=== PATIENT | male | born 1955 | race Caucasian/White ===

== ENCOUNTER 2021-08-14 09:49 | Emergency (ER) | payer MEDICARE, MEDICAID, SELFPAY ==
[2021-08-14] VITALS (16 sets, daily range): BP systolic 126–166; BP diastolic 66–119; PULSE 98–137; RESP 9–24; TEMP 36.4; O2SAT 95–100
--- NOTE | 2021-08-14 10:00 | DI.RAD_ITS ---
Exam(s) XR KNEE RT 3V AP,LAT,CADE EXAM: XR KNEE RT 3V AP,LAT,CADE CLINICAL HISTORY: pain post fall. TECHNIQUE: 2D digital imaging was performed of the right knee. Three views obtained. AP, lateral an d PA tunnel views were obtained. COMPARISON: No exams were available for comparison FINDINGS: BONES: No acute fracture is present. The visualized portion of the proximal right tibial shaft appear s somewhat lucent what mildly thickened trabecular pattern. The bone also appears to be mildly enlar ged. No pathologic fracture is identified. JOINTS: The knee is normally aligned. No joint effusion is seen. Mild degenerative changes are seen i n the right knee with periarticular spurring in the medial femoral tibial joint and the patellofemora l joint. There is also moderate narrowing of the medial femoral tibial joint. SOFT TISSUE: Normal. IMPRESSION: 1. No acute fracture or dislocation. 2. Mild degenerative changes of the knee. 3. Marrow abnormalities involving the proximal right tibia. Differential considerations include Page t's disease, prior trauma or possible neoplasm. Please correlate with the patient's clinical history . No evidence of a pathologic fracture is identified. An outpatient x-ray of the right leg should be obtained. DATA REPOSITORY: RADIATION DOSE DELIVERED:
--- NOTE | 2021-08-14 10:00 | DI.CT_ITS ---
Exam(s) CT HEAD CERVICAL SPINE WO EXAM: CT HEAD CERVICAL SPINE WO CLINICAL HISTORY: pain post fall, [place]. TECHNIQUE: Imaging Protocol: Axial computed tomography images with coronal and sagittal reformatted images were created and reviewed COMPARISON: No exams were available for comparison FINDINGS: The examination is limited due to patient motion artifact. CT Head: Ventricles and Extra axial spaces: Normal in size and morphology for the patient's age. Hemorrhage: There is a 0.7 x 0.6 cm hyperdense focus in the high right parietal lobe. Findings is aceves spicious for a focus of intraparenchymal hemorrhage. It exerts no mass effect or midline shift. Cerebral parenchyma: No acute territorial infarct. There are areas of decreased attenuation in the w amado matter likely reflecting small vessel ischemic disease. Midline shift: None. Brainstem/Cerebellum: Normal. Calvarium: No acute fracture. Osteopenia. Visualized Paranasal sinuses/Mastoids: Clear. Soft Tissues: Unremarkable. CT Cervical Spine: Bones: No acute fracture or subluxation. Degenerative changes are seen in the cervical spine. Soft Tissues: Unremarkable. Lung Apices: Clear. IMPRESSION: 1. 0.7 x 0.6 cm hyperdense focus in the high right parietal lobe suspicious for acute intraparenchyma l hemorrhage. No mass effect or midline shift. 2. No acute fracture or subluxation in the cervical spine. 3. Results of this exam have been verbally communicated with provider. RADIATION DOSE DELIVERED: 1,211.01mGy.cm Total DLP DATA REPOSITORY: All CT scans at this facility are submitted to the National Radiology Data Registry (NRDR) Dose Index Registry (DIR) with the [employer] (ACR). RADIATION OPTIMIZATION: All CT scans at this facility use at least one of these dose optimization te chniques: automated exposure control; mA and/or kV adjustment per patient size (includes targeted exa ms where dose is matched to clinical indication); or iterative reconstruction.
[2021-08-14 10:30] LABS: Abs Immature Grans 0.05 10^3/uL (0.0-0.06); Absolute Basophil Count 0.02 10^3/uL (0.0-0.2); Absolute Eosinophil Count 0.13 10^3/uL (0.0-0.7); Absolute Lymphocyte Count 1.34 10^3/uL (1.2-3.4); Absolute Neutrophil Count 4.34 10^3/uL (1.2-6.7); Basophils % 0.3; Eosinophils % 1.9; Immature Grans % 0.7; Lymphocytes % 19.8; MCH 31.3 pg (27.0-33.0); MCHC 32.4 % (32.0-36.0); MCV 96.6 fL (80-95); MPV 8.8 fL (8.0-11.0); Monocytes % 13.3; Nucleated RBC 0 %; Platelet Count 158 10^3/uL (130-400); RBC 3.83 10^6/uL (4.36-5.78); RDW 12.1 % (11.8-14.1); RDW-SD 42.9 fL; WBC 6.78 10^3/uL (4.4-10.8)
[2021-08-14 10:46] LABS: ALT 18 U/L (16-63); AST 19 U/L (15-37); Albumin 3.1 g/dL (3.4-5.0); Alkaline Phosphatase 123 U/L (46-116); Anion Gap 4.4 mmol/L (3-11); BUN 11 mg/dL (7-18); Bilirubin, Total 0.3 mg/dL (0.2-1.0); CO2 31.6 mmol/L (21.0-32.0); CREATININE 0.7 mg/dL (0.70-1.30); Calcium 8.8 mg/dL (8.5-10.1); Chloride 104 mmol/L (98-107); Glucose 81 mg/dL (74-106); Potassium 4.2 mmol/L (3.5-5.1); Sodium 140 mmol/L (136-145); Total Protein 6.9 g/dL (6.4-8.2)
[2021-08-14 10:50] LABS: Bilirubin Negative (Negative); Blood Negative (Negative); Clarity Clear (Clear); Glucose Negative (Negative); Ketones Negative (Negative); Leukocyte Esterase Moderate (Negative); Nitrite Negative (Negative); Specific Gravity 1.015 (1.005-1.025); Urobilinogen 0.2 EU/dL (Up TO 0.2)
[2021-08-14 10:58] LABS: Bacteria Few HPF (Negative); C & S Indicated? Yes; Casts Negative LPF (Negative); Crystals Negative HPF (Negative); Epithelial Cells Few HPF (Negative); Mucus Negative (Negative); RBC 0-2 HPF (0-2); WBC 20-50 HPF (0-5)
[2021-08-14] MEDS: Omnipaque 350 MG/ML 100 ML BTL IJ (11:58)
--- NOTE | 2021-08-14 12:00 | DI.CT_ITS ---
Exam(s) CT CHEST/ABD/PEL W CT THORACIC LUMBAR SPINE REC EXAM: CT CHEST/ABD/PEL W and CT thoracic and lumbar spine recons CLINICAL HISTORY: fall, lumbar and thoracic pain, right flank pain TECHNIQUE: Imaging Protocol: Axial computed tomography images with coronal and sagittal reformatted images were created and reviewed CONTRAST MATERIAL: Intravenous: Omnipaque 350 Contrast volume:100 mL Oral: No COMPARISON: No exams were available for comparison FINDINGS: CHEST: Tracheobronchial tree: Patent where visualized. Pulmonary parenchyma: No consolidation or dominant measurable mass. No architectural distortion. Ther e is a 4 mm pulmonary nodule in the right upper lobe. Visualized thyroid gland: Unremarkable. Mediastinum and Giovanna: No dominant adenopathy or fluid collection. Small hiatal hernia. Pleura: No effusion or pneumothorax. Heart: Mild cardiomegaly. Moderate coronary artery calcification. No pericardial effusion. Aorta: Thoracic aorta non-dilated. Atherosclerosis. Lymph nodes: Within normal limits. Soft tissues: Unremarkable. Bones:Old bilateral rib fractures. Subacute healing fracture of the posterolateral aspect of the lef t 9th rib. No acute rib fractures. Thoracic spine recons: No acute fracture or subluxation is seen in the thoracic spine. ABDOMEN: Liver: Normal density. No measurable mass. Portal, Superior Mesenteric, and Splenic Veins: Unremarkable. Gallbladder and Biliary Tract: Cholelithiasis. No biliary ductal dilatation. There is a 3 mm stone in the common bile duct in the head of the pancreas. Pancreas: Normal density, no abnormal calcifications or inflammatory process. Spleen: Normal. Adrenals: No masses seen. Kidneys: Normal size, contour and axis. No radiodense stones or obstructive uropathy. No masses seen. Abdominal Aorta: Abdominal portion non-dilated. Atherosclerosis. Bowel: No obstruction or bowel wall thickening. No evidence of appendicitis. Peritoneal Cavity: No ascites, collection or mesenteric inflammatory response. No free air. Lymph Nodes: Within normal limits. Bones: Diffuse osteopenia. Ankylosis of the sacroiliac joints. The patient has a right total hip re placement. Soft Tissues: Bilateral fat containing inguinal hernia. PELVIS: Bladder: There is diffuse thickening of the wall of the urinary bladder. This may be secondary to ch ronic bladder outlet obstruction, infectious or inflammatory cystitis. Please correlate clinically. Reproductive Organs: Enlarged prostate gland. Lymph Nodes: Within normal limits. Bones: Osteopenia. Lumbar spine recons: The bones are osteopenic. Degenerative changes are present. There is a jorge ky deformity of the L2 vertebral body which appears old. No acute fracture or subluxation is ident ified. IMPRESSION: 1. No evidence of acute thoracic, abdominal or pelvic injury. 2. Subacute healing fracture of the posterolateral aspect of the left 9th rib. 3. 4 mm right upper lobe pulmonary nodule. In patients with high risk, (history of smoking or other risk fractures) a follow-up CT scan of the chest in 12 months is recommended. 4. Cholelithiasis and choledocholithiasis. No biliary ductal dilatation. 5. Results of this exam have been verbally communicated with provider. RADIATION DOSE DELIVERED: Total DLP DATA REPOSITORY: All CT scans at this facility are submitted to the National Radiology Data Registry (NRDR) Dose Index Registry (DIR) with the [employer] (ACR). RADIATION OPTIMIZATION: All CT scans at this facility use at least one of these dose optimization te chniques: automated exposure control; mA and/or kV adjustment per patient size (includes targeted exa ms where dose is matched to clinical indication); or iterative reconstruction.
[2021-08-14] MEDS: Normal Saline Flush 10 ML SYR IVP (12:11)
[2021-08-14] MEDS: Haloperidol 5 MG/ML VIAL 2 MG IM/IV (13:08)
[2021-08-14] MEDS: levETIRAcetam 1,000 MG in Normal Saline 100 ML 400 MG IVPB (13:19)
--- NOTE | 2021-08-14 13:43 | NUR.NOTE ---
Patient became uncooperative, attempts to slide out of bed. Bed states he needs to put pants on and get to work. 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 Attempts to take off blood pressure cuff. Soft restraints applied to bed, not to patient. Nursing Note:
--- NOTE | 2021-08-14 14:05 | ED.GENADUL_ITS ---
Discharge Plan Discharge Details Chief Complaint: Trauma Primary Care Provider: Nieves Sherman ED Provider: Susannah Lao Home Meds and New Rx's Prescriptions: No Action sennosides [senna] 8.6 mg Tablet 17.2 mg PO DAILY RF: 0 polyethylene glycol 3350 [Miralax] 17 gram Powder In Packet 17 g PO DAILY RF: 0 tamsulosin 0.4 mg Capsule 0.4 mg PO DAILY RF: 0 divalproex [Depakote ER] 500 mg Tablet Extended Release 24 Hr 500 mg PO TID RF: 0 furosemide [Lasix] 40 mg Tablet 40 mg PO QID RF: 0 pantoprazole 40 mg Recon Soln 40 mg RF: 0 potassium chloride [Klor-Con 10] 10 mEq Tablet Extended Release 20 meq PO DAILY RF: 0 pantoprazole 40 mg Tablet,Delayed Release (Dr/Ec) 40 mg PO DAILY RF: 0 haloperidol [Haldol] 10 mg Tablet 10 mg PO BID RF: 0 nicotine 21 mg/24 hr Patch 24 Hour 21 mg topical DAILY RF: 0 enoxaparin [Lovenox] 40 mg/0.4 mL Syringe 40 mg subcut DAILY RF: 0 quetiapine [Seroquel] 50 mg Tablet 50 mg PO QID RF: 0 Discharge Data Discharge Date/Time-TO BE ENTERED AT DEPARTURE: 08/14/21 14:35 Medical Decision Making <Orville Bernal MD - Last Filed: 08/21/21 19:18> Patient seen, examined, and discussed with MAGUI Lao. I agree with treatment plan as discussed/documented. <MAGUI Vázquez - Last Filed: 08/17/21 08:19> Patient is alert, oriented, slightly agitated initially upon arrival, no visible sign of trauma to patient's head but on Lovenox I will perform CT scan, will order CT head, cervical spine, chest, abdomen, pelvis Patient is hemodynamically stable Labs do not show acute abnormality, urinary tract infection likely 30 minutes?CT per radiology, Dr. Mario shows a for millimeter right parietal intraparenchymal hemorrhage Patient will need transfer for higher level of care, neurosurgery, trauma evaluation, CT chest abdomen pelvis did not show abnormality, cervical spine clear on CT scan, collar removed Blood pressure 130/80 at time of reassessment, has not received Lovenox since last evening, received 1000 mg of Keppra for seizure prophylaxis Patient did become agitated at approximately 1330, it sounds like the is his baseline intermittently with agitation and confusion, he has some dementia Low suspicion that patient is experiencing alcohol withdrawal as he has been hospitalized for the past month We will need transfer to higher level of care, I did contact [facility], [facility], [facility] and [facility], [facility] and they are unable to accept this patient I did speak with Dr. Cook at [facility] and she is able to accept this patient, he has received Haldol, 4 mg, Ativan, 1 mg, and Benadryl 25 mg secondary to acute agitation, he is at baseline on Haldol and Seroquel per nursing staff DHS arm with the time, the rehab where patient currently resides that his agitation is not new for patient and he does have baseline dementia I also reviewed his notes from [facility] recent hospitalization I have lower suspicion that patient agitation is related to intracranial pathology and despite is more multifactorial given patient dementia, current emergency room situation, and patient being made aware of transfer out of state Of note, patient was calm and cooperative, slightly confused at time of initial evaluation We did suspect patient Lovenox and whether or not any reversible intervention should be performed, however patient has not received this since last evening and as it is a short acting medication it should no longer be therapeutic Patient niece and guardian made aware regarding extended transfer secondary to capacity as she is at local hospital and patient does not have a dedicated DPOA and it sounds like this individual will be appointed to that status in the near future, as for now she would like patient to remain full code as was his wish initially \ patient is listed full CODE STATUS, it sounds like there is a POLST form pending HPI <Orville Bernal MD - Last Filed: 08/21/21 19:18> General Date/Time Provider Initiated Documentation: 08/14/21 09:57 . Related Data Home Medications Medication Instructions Recorded Confirmed divalproex [Depakote ER] 500 mg PO TID 08/14/21 08/14/21 enoxaparin [Lovenox] 40 mg SUBCUT DAILY 08/14/21 08/14/21 furosemide [Lasix] 40 mg PO QID 08/14/21 08/14/21 haloperidol [Haldol] 10 mg PO BID 08/14/21 08/14/21 nicotine 21 mg TOPICAL DAILY 08/14/21 08/14/21 pantoprazole 40 mg 08/14/21 pantoprazole 40 mg PO DAILY 08/14/21 08/14/21 polyethylene glycol 3350 [Miralax] 17 g PO DAILY 08/14/21 08/14/21 potassium chloride [Klor-Con 10] 20 meq PO DAILY 08/14/21 08/14/21 quetiapine [Seroquel] 50 mg PO QID 08/14/21 08/14/21 sennosides [senna] 17.2 mg PO DAILY 08/14/21 08/14/21 tamsulosin 0.4 mg PO DAILY 08/14/21 08/14/21 Allergies Allergy/AdvReac Type Severity Reaction Status Date / Time No Known Allergies Allergy Unverified 08/14/21 12:06 <MAGUI Vázquez - Last Filed: 08/17/21 08:19> General Mode of arrival: ambulatory . Limitations to Documentation: no limitations . Information obtained by: patient . HPI Narrative: This 65-year-old gentleman with history of alcohol consumption, hypertension, compression fractures, rib fracture, DVT presents from [facility] where he was a new patient with fall just prior to arrival. Hit his head and complaining of some right hip pain. No reported loss of consciousness. Not on ground for an extended period of time reportedly. Has not consumed alcohol in the past several months secondary to admission and transfer to skilled rehab. During the unable to give any additional information at baseline mentation on arrival reportedly. General Stated Complaint: Trauma KENDRA: 3 <MAGUI Vázquez - Last Filed: 08/17/21 08:19> All systems reviewed & are unremarkable except as noted in HPI and below PFSH <Orville Bernal MD - Last Filed: 08/21/21 19:18> Social History Smoking/Tobacco Use Status: Former Tobacco Use Quit Date: 05/14/21 Smoking risk assessment performed?: Yes Alcohol Intake: former Drug use: Never Substance use type: does not use Do you feel safe at home: Yes Do you feel safe in your relationship?: Yes <MAGUI Vázquez - Last Filed: 08/17/21 08:19> Const General: cooperative and no acute distress HENMT Other: Uvula midline, no visible evidence of trauma Eyes Pupils: PERRL Neck Other: Tenderness to palpation paraspinal, no visible evidence of trauma Resp Effort & Inspection: normal respiratory effort Auscultation: clear to auscultation bilaterally Cardio Rate: regular rate Rhythm: regular rhythm GI Other: No abdominal tenderness, no CVA tenderness, no visible evidence of trauma Back/Spine/Pelvis Back: no CVA tenderness and CVA tenderness Other: Right hip tenderness, no visible sign of trauma, specifically no visible sign of trauma to lumbar or thoracic spine Skin General skin exam: no rashes or lesions noted Neuro General: patient alert Cranial Nerves: CN's II-XI intact bilaterally Speech: speech normal Gait: normal gait Motor: muscle tone normal throughout Sensory Exam: no sensory deficits noted Other: Oriented initially to person, location, Extrem Other: Distal pulses intact <MAGUI Vázquez - Last Filed: 08/17/21 08:19> Vital Signs Vital signs: Vital Signs Temperature 36.4 C L 08/14/21 09:51 Pulse 98 H 08/14/21 09:51 Respiratory Rate 14 08/14/21 09:51 Pulse Oximetry 98 08/14/21 09:51 Temperature 36.4 C L 08/14/21 09:51 Temperature Source Skin 08/14/21 09:51 Pulse 105 H 08/14/21 13:30 Respiratory Rate 14 08/14/21 09:51 Respiratory Effort Non-Labored 08/14/21 09:54 Respiratory Depth Normal 08/14/21 09:54 Respiratory Pattern Normal 08/14/21 09:54 Blood Pressure 148/75 H 08/14/21 13:30 Blood Pressure Mean 93 08/14/21 13:30 Blood Pressure Position Supine 08/14/21 09:51 Pulse Oximetry 99 08/14/21 13:41 Oxygen Delivery Method Room Air 08/14/21 09:51 Oxygen Flow Rate 0 08/14/21 09:51 Pain Level 7 08/14/21 09:51 Lab/Test Results Lab/Test Results: 08/14/21 10:37 Urine - Reflex from Ua Urine Culture - Pending Laboratory Tests Range/Units 08/14/21 08/14/21 08/14/21 10:22 10:22 10:37 WBC (4.4-10.8) 10^3/uL 6.78 RBC (4.36-5.78) 10^6/uL 3.83 L Hgb (13.5-17.5) g/dL 12.0 L Hct (40.0-50.0) % 37.0 L MCV (80-95) fL 96.6 H MCH (27.0-33.0) pg 31.3 MCHC (32.0-36.0) % 32.4 RDW (11.8-14.1) % 12.1 Plt Count (130-400) 10^3/uL 158 MPV (8.0-11.0) fL 8.8 Immature Gran % 0.7 Neutrophils % 64.0 Lymphocytes % 19.8 Monocytes % 13.3 Eosinophils % 1.9 Basophils % 0.3 Nucleated RBC % % 0 Absolute Neutrophils (1.2-6.7) 10^3/uL 4.34 Absolute Lymphocytes (1.2-3.4) 10^3/uL 1.34 Absolute Monocytes (0.1-0.8) 10^3/uL 0.90 H Absolute Eosinophils (0.0-0.7) 10^3/uL 0.13 Absolute Basophils (0.0-0.2) 10^3/uL 0.02 Sodium (136-145) mmol/L 140 Potassium (3.5-5.1) mmol/L 4.2 Chloride (98-107) mmol/L 104 Carbon Dioxide (21.0-32.0) mmol/L 31.6 Anion Gap (3-11) mmol/L 4.4 BUN (7-18) mg/dL 11 Creatinine (0.70-1.30) mg/dL 0.7 Estimated GFR/1.73 m2 (mL/min/1.73m2) >= 60.00 Glucose (74-106) mg/dL 81 Calcium (8.5-10.1) mg/dL 8.8 Total Bilirubin (0.2-1.0) mg/dL 0.3 AST (15-37) U/L 19 ALT (16-63) U/L 18 Alkaline Phosphatase (46-116) U/L 123 H Total Protein (6.4-8.2) g/dL 6.9 Albumin (3.4-5.0) g/dL 3.1 L Urine Color (Yellow) Yellow Urine Clarity (Clear) Clear Urine pH (5-8) 7.0 Ur Specific [place] (1.005-1.025) 1.015 Urine Protein (Negative) mg/dL Negative Urine Ketones (Negative) mg/dL Negative Urine Blood (Negative) Negative Urine Nitrite (Negative) Negative Urine Bilirubin (Negative) Negative Urine Urobilinogen (Up TO 0.2) EU/dL 0.2 Ur Leukocyte Esterase (Negative) Moderate H Urine RBC (0-2) HPF 0-2 Urine WBC (0-5) HPF 20-50 H Ur Epithelial Cells (Negative) HPF Few Urine Crystals (Negative) HPF Negative Urine Bacteria (Negative) HPF Few Urine Casts (Negative) LPF Negative Urine Mucus (Negative) Negative Ur Culture Indicated? Yes Urine Glucose (Negative) mg/dL Negative Patient ABO/Rh Antibody Screen Range/Units 08/14/21 12:54 WBC (4.4-10.8) 10^3/uL RBC (4.36-5.78) 10^6/uL Hgb (13.5-17.5) g/dL Hct (40.0-50.0) % MCV (80-95) fL MCH (27.0-33.0) pg MCHC (32.0-36.0) % RDW (11.8-14.1) % Plt Count (130-400) 10^3/uL MPV (8.0-11.0) fL Immature Gran % Neutrophils % Lymphocytes % Monocytes % Eosinophils % Basophils % Nucleated RBC % % Absolute Neutrophils (1.2-6.7) 10^3/uL Absolute Lymphocytes (1.2-3.4) 10^3/uL Absolute Monocytes (0.1-0.8) 10^3/uL Absolute Eosinophils (0.0-0.7) 10^3/uL Absolute Basophils (0.0-0.2) 10^3/uL Sodium (136-145) mmol/L Potassium (3.5-5.1) mmol/L Chloride (98-107) mmol/L Carbon Dioxide (21.0-32.0) mmol/L Anion Gap (3-11) mmol/L BUN (7-18) mg/dL Creatinine (0.70-1.30) mg/dL Estimated GFR/1.73 m2 (mL/min/1.73m2) Glucose (74-106) mg/dL Calcium (8.5-10.1) mg/dL Total Bilirubin (0.2-1.0) mg/dL AST (15-37) U/L ALT (16-63) U/L Alkaline Phosphatase (46-116) U/L Total Protein (6.4-8.2) g/dL Albumin (3.4-5.0) g/dL Urine Color (Yellow) Urine Clarity (Clear) Urine pH (5-8) Ur Specific [place] (1.005-1.025) Urine Protein (Negative) mg/dL Urine Ketones (Negative) mg/dL Urine Blood (Negative) Urine Nitrite (Negative) Urine Bilirubin (Negative) Urine Urobilinogen (Up TO 0.2) EU/dL Ur Leukocyte Esterase (Negative) Urine RBC (0-2) HPF Urine WBC (0-5) HPF Ur Epithelial Cells (Negative) HPF Urine Crystals (Negative) HPF Urine Bacteria (Negative) HPF Urine Casts (Negative) LPF Urine Mucus (Negative) Ur Culture Indicated? Urine Glucose (Negative) mg/dL Patient ABO/Rh O Negative Antibody Screen NEGATIVE <MAGUI Vázquez - Last Filed: 08/17/21 08:19> Critical Care Time Critical Care Time: Yes Total Critical Care Time: 90 Attestation: Telemetry monitoring, Diagnostic Blood Work, Diagnostic Imaging needed for medical history and physical restraint as patient at risk for harm harming self and exacerbating intraparenchymal hemorrhage, transfer to trauma center, frequent neuro checks Restraint Face to Face <Orville Bernal MD - Last Filed: 08/21/21 19:18> Time of Face to Face Face to Face: Time of Face to Face: 14:05 Patient's Immediate Situation Requiring Restraints/Seclusion: Harm to Patient Patient's Medical & Behavioral Condition: Patient is quite agitated attempting to elope from the. He is quite confused. He is at risk of harming himself. Plan to provide chemical and soft physical restraint for his own protection
[2021-08-14] MEDS: diphenhydrAMINE 50 MG/ML VIAL 25 MG IVP (14:07)
[2021-08-14] MEDS: Haloperidol 5 MG/ML VIAL 4 MG IV (14:07)
[2021-08-14] MEDS: LORazepam 2 MG/ML VIAL 1 MG IVP (14:08)
[2021-08-14] MEDS: cefTRIAXone 1 GM/50 ML BAG IVPB (14:10)
--- NOTE | 2021-08-14 14:39 | NUR.NOTE ---
Patient became agitated and refusing to stay in bed, continually moving from bed. [place] soft restraints placed on patient's upper extremeties, pt give Ativan, Haldol, and Benedryl IV. Patient continued to refuse and move away from staff attempting to perform EKG's.Nursing Note:
[2021-08-14] MEDS: ACETAMINOPHEN 1,000 MG/100 ML BTL 400 MG IVPB (14:48)
[2021-08-14] MEDS: Haloperidol 5 MG/ML VIAL (14:50)
== END 2021-08-14 14:35 ==
PROVIDERS: Emergency Provider Physician Assistant; PCP Internal Medicine
DX: S06.360A Traumatic hemorrhage of cerebrum, unspecified, without loss of consciousness, initial encounter (principal); W18.39XA Other fall on same level, initial encounter; M25.551 Pain in right hip; F03.91 Unspecified dementia, unspecified severity, with behavioral disturbance; R40.2412 Glasgow coma scale score 13-15, at arrival to emergency department
CPT/HCPCS: 36415; 73562; 74177; 80053; 86850; 86900; 86901; 90471; 96365; 96367; 96372; 96375; 99291; 99292; 70450; 71260; 72125; 81003; 81015; 85025; 87086; J0131; J0696; J1200; J1630; J1953; J2060; J3490

== ENCOUNTER 2021-08-20 15:08 | Outpatient (REF) | payer SELFPAY ==
[2021-08-20 19:39] LABS: Abs Immature Grans 0.02 10^3/uL (0.0-0.06); Absolute Basophil Count 0.03 10^3/uL (0.0-0.2); Absolute Eosinophil Count 0.28 10^3/uL (0.0-0.7); Absolute Lymphocyte Count 1.43 10^3/uL (1.2-3.4); Absolute Monocyte Count 0.75 10^3/uL (0.1-0.8); Absolute Neutrophil Count 4.62 10^3/uL (1.2-6.7); Basophils % 0.4; Eosinophils % 3.9; HCT 31.4 % (40.0-50.0); HGB 10.2 g/dL (13.5-17.5); Immature Grans % 0.3; Lymphocytes % 20.1; MCH 31.6 pg (27.0-33.0); MCHC 32.5 % (32.0-36.0); MCV 97.2 fL (80-95); MPV 10.2 fL (8.0-11.0); Monocytes % 10.5; Neutrophils % 64.8; Nucleated RBC 0 %; Platelet Count 172 10^3/uL (130-400); RBC 3.23 10^6/uL (4.36-5.78); RDW 12.5 % (11.8-14.1); RDW-SD 44.9 fL; WBC 7.13 10^3/uL (4.4-10.8)
[2021-08-20 20:05] LABS: Iron 31 ug/dL (65-175); Total Iron Binding Capacity 195 ug/dL (250-450); Transferrin Sat 16 % (20-55)
[2021-08-20 20:12] LABS: Anion Gap 6.6 mmol/L (3-11); BUN 8 mg/dL (7-18); CO2 28.4 mmol/L (21.0-32.0); CREATININE 0.6 mg/dL (0.70-1.30); Calcium 8.4 mg/dL (8.5-10.1); Chloride 110 mmol/L (98-107); Ferritin 317 ng/mL (26-388); Glucose 83 mg/dL (74-106); Magnesium 2.1 mg/dL (1.8-2.4); Potassium 4.4 mmol/L (3.5-5.1); Sodium 145 mmol/L (136-145); TSH (W/Ref FT4) 4.11 uIU/mL (0.36-3.74)
[2021-08-20 20:22] LABS: Vitamin D 25 Total 34.4 ng/mL (30-100)
[2021-08-20 20:37] LABS: FREE T4 1.09 ng/dL (0.76-1.46)
[2021-08-20 20:42] LABS: Hemoglobin A1C 5.2 % (<5.7)
[2021-08-20 21:07] LABS: Folate 7.6 ng/mL (8.6-20.0); Vitamin B12 664 pg/mL (193-986)
== END 2021-08-20 15:09 | disposition home or self-care (01) ==
LOC: LBN 15:08
PROVIDERS: PCP Internal Medicine; Visit Provider Internal Medicine
DX: F10.239 Alcohol dependence with withdrawal, unspecified (principal); M62.81 Muscle weakness (generalized); I69.10 Unspecified sequelae of nontraumatic intracerebral hemorrhage; F10.97 Alcohol use, unspecified with alcohol-induced persisting dementia
CPT/HCPCS: 80048; 82306; 82607; 82728; 82746; 83036; 83540; 83550; 83735; 84439; 84443; 85025

== ENCOUNTER 2022-04-28 17:05 | Outpatient (REF) | payer SELFPAY ==
[2022-04-28 17:32] LABS: Abs Immature Grans 0.02 10^3/uL (0.0-0.06); Absolute Basophil Count 0.02 10^3/uL (0.0-0.2); Absolute Eosinophil Count 0.13 10^3/uL (0.0-0.7); Absolute Lymphocyte Count 1.68 10^3/uL (1.2-3.4); Absolute Monocyte Count 0.95 10^3/uL (0.1-0.8); Absolute Neutrophil Count 4.02 10^3/uL (1.2-6.7); Basophils % 0.3; Eosinophils % 1.9; HCT 30.6 % (40.0-50.0); HGB 10.7 g/dL (13.5-17.5); Immature Grans % 0.3; Lymphocytes % 24.6; MCH 33.8 pg (27.0-33.0); MCV 97 fL (80-95); MPV 9.5 fL (8.0-11.0); Monocytes % 13.9; Platelet Count 229 10^3/uL (130-400); RBC 3.17 10^6/uL (4.36-5.78); RDW 11.4 % (11.8-14.1); RDW-SD 40.5 fL; WBC 6.82 10^3/uL (4.4-10.8)
[2022-04-28 17:46] LABS: VALPROIC ACID 79.7 ug/mL
== END 2022-04-28 17:06 | disposition home or self-care (01) ==
LOC: LBN 17:05
PROVIDERS: PCP Internal Medicine; Visit Provider Nurse Practitioner Family
DX: F31.9 Bipolar disorder, unspecified (principal); G40.89 Other seizures; M86.171 Other acute osteomyelitis, right ankle and foot; Z51.81 Encounter for therapeutic drug level monitoring; Z79.899 Other long term (current) drug therapy
CPT/HCPCS: 80164; 85025

== ENCOUNTER 2022-04-29 17:15 | Outpatient (REF) | payer SELFPAY ==
[2022-04-29 18:28] LABS: Anion Gap 6.8 mmol/L (3-11); BUN 7 mg/dL (7-18); CO2 29.2 mmol/L (21.0-32.0); CREATININE 0.7 mg/dL (0.70-1.30); Calcium 8.6 mg/dL (8.5-10.1); Chloride 98 mmol/L (98-107); Glucose 101 mg/dL (74-106); Potassium 4.2 mmol/L (3.5-5.1); Sodium 134 mmol/L (136-145)
== END 2022-04-29 17:16 | disposition home or self-care (01) ==
LOC: LBN 17:15
PROVIDERS: PCP Internal Medicine; Visit Provider Nurse Practitioner Family
DX: M86.171 Other acute osteomyelitis, right ankle and foot (principal); R26.2 Difficulty in walking, not elsewhere classified; Z79.899 Other long term (current) drug therapy
CPT/HCPCS: 80048

== ENCOUNTER 2022-05-01 10:51 | Outpatient (REF) | payer SELFPAY ==
[2022-05-01 12:12] LABS: Bilirubin Negative (Negative); Blood Negative (Negative); Clarity Clear (Clear); Glucose Negative (Negative); Ketones Negative (Negative); Leukocyte Esterase Negative (Negative); Nitrite Negative (Negative); Specific Gravity 1.015 (1.005-1.025)
[2022-05-01 12:21] LABS: Abs Immature Grans 0.02 10^3/uL (0.0-0.06); Absolute Basophil Count 0.02 10^3/uL (0.0-0.2); Absolute Eosinophil Count 0.15 10^3/uL (0.0-0.7); Absolute Lymphocyte Count 1.44 10^3/uL (1.2-3.4); Absolute Monocyte Count 0.86 10^3/uL (0.1-0.8); Basophils % 0.3; Eosinophils % 2.2; HCT 30.5 % (40.0-50.0); HGB 10.4 g/dL (13.5-17.5); Immature Grans % 0.3; Lymphocytes % 20.9; MCH 33.2 pg (27.0-33.0); MCHC 34.1 % (32.0-36.0); MCV 97 fL (80-95); MPV 9.7 fL (8.0-11.0); Monocytes % 12.5; Neutrophils % 63.8; Platelet Count 199 10^3/uL (130-400); RBC 3.13 10^6/uL (4.36-5.78); RDW 11.4 % (11.8-14.1); RDW-SD 40.6 fL; WBC 6.89 10^3/uL (4.4-10.8)
[2022-05-01 12:36] LABS: ALT 10 U/L (16-63); AST 14 U/L (15-37); Albumin 2.7 g/dL (3.4-5.0); Alkaline Phosphatase 92 U/L (46-116); BUN 5 mg/dL (7-18); Bilirubin, Total 0.5 mg/dL (0.2-1.0); CREATININE 0.6 mg/dL (0.70-1.30); Calcium 8.2 mg/dL (8.5-10.1); Chloride 101 mmol/L (98-107); Glucose 107 mg/dL (74-106); Potassium 3.9 mmol/L (3.5-5.1); Sodium 137 mmol/L (136-145); Total Protein 5.9 g/dL (6.4-8.2)
== END 2022-05-01 10:52 | disposition home or self-care (01) ==
LOC: NCHCN 10:51
PROVIDERS: PCP Internal Medicine; Visit Provider Family Medicine
DX: M86.171 Other acute osteomyelitis, right ankle and foot (principal); Z47.81 Encounter for orthopedic aftercare following surgical amputation; I50.9 Heart failure, unspecified; R82.998 Other abnormal findings in urine
CPT/HCPCS: 80053; 81003; 85025

== ENCOUNTER 2022-05-02 04:18 | Observation (INO) | payer MEDICARE, MEDICAID, SELFPAY ==
[2022-05-02] VITALS (74 sets, daily range): BP systolic 102–168; BP diastolic 50–106; PULSE 76–124; RESP 0–27; TEMP 36.6–37.1; O2SAT 94–99
--- NOTE | 2022-05-02 | DI.RAD_ITS ---
Exam(s) XR FOOT LT COMPLETE EXAM: XR FOOT LT COMPLETE CLINICAL HISTORY: L heel pain. TECHNIQUE: 2D digital imaging was performed. Three views. COMPARISON: CR XR FOOT RT COMPLETE from 09/22/2021 FINDINGS: Exam is limited by overlying wrapping. BONES: Heel spur. No acute fracture is present. No bony destructive lesion is seen. Bones are osteop enic. JOINTS: No dislocation present. SOFT TISSUE: Diffuse swelling. IMPRESSION: Diffuse soft tissue swelling. No evidence of fracture DATA REPOSITORY: RADIATION DOSE DELIVERED:
--- NOTE | 2022-05-02 04:24 | W.ED.GENAD ---
Discharge Plan Disposition Patient Disposition: [facility] INPATIENT Condition: Poor Discharge Details Chief Complaint: AMS/LOC Clinical Impression: AMS (altered mental status), Leg edema Primary Care Provider: Nieves Sherman ED Provider: Kendall Torres [place] [facility] Rx's Prescriptions: No Action furosemide 40 mg tablet 40 mg PO DAILY haloperidol 1 mg tablet 1 mg PO BID PRN ferrous sulfate 325 mg (65 mg iron) tablet 325 mg PO BID ascorbate calcium (vitamin C) 500 mg tablet 500 mg PO BID sennosides [senna] 8.6 mg Tablet 17.2 mg PO DAILY polyethylene glycol 3350 [Miralax] 17 gram Powder In Packet 17 g PO DAILY tamsulosin 0.4 mg Capsule 0.4 mg PO DAILY divalproex [Depakote ER] 500 mg Tablet Extended Release 24 Hr 500 mg PO TID pantoprazole 40 mg Tablet,Delayed Release (Dr/Ec) 40 mg PO DAILY enoxaparin [Lovenox] 40 mg/0.4 mL Syringe 40 mg subcut DAILY quetiapine [Seroquel] 50 mg Tablet 50 mg PO QID atorvastatin 40 mg Tablet 40 mg PO QPM acetaminophen 325 mg Tablet 325 mg PO Q6H PRN PRN tramadol 50 mg Tablet 50 mg PO Q4H PRN PRN bisacodyl [Dulcolax (bisacodyl)] 10 mg Suppository 10 mg AR DAILY PRN risperidone 1 mg Tablet 1 mg PO DAILY potassium chloride 20 mEq Tablet Extended Release 20 meq PO DAILY magnesium oxide 400 mg magnesium Tablet 400 mg PO BID Medical Decision Making Patient sent from [facility] with worsening confusion, bilateral lower extremity edema, weakness, falls. Patient started on tramadol status post initial fall a little over a week ago. Patient does appear confused. He is not febrile. He is nonfocal neurologically. IV in place. Laboratory studies including urinalysis ordered. Head CT and chest x-ray to be obtained. Patient remains confused and has had multiple attempts to get off the stretcher. He is easily redirectable. His head CT is negative for any acute changes. Chest x-ray unremarkable. Laboratory studies unremarkable. His anemia is stable. His kidney function is stable. Discussed with hospitalist for admission. We will add Depakote level, ammonia, VBG. Lab Data Lab results reviewed: Yes I reviewed the patient's lab results. Lab results narrative: Unremarkable, stable anemia. ECG Data Attestation: I personally reviewed and interpreted this ECG (s) as follows: Prior ECG tracings: not available for review Interpretation: See EKG HPI General Mode of arrival: EMS. Date/Time Provider Initiated Documentation: 05/02/22 04:24. Limitations to Documentation: altered mental status. Information obtained by: patient, RN notes reviewed and old records reviewed. HPI Narrative: Patient sent from [facility] for evaluation of altered mental status, weakness, falls over the course of a week. Patient started on tramadol after the first fall. Weakness, confusion, hallucinations reported by [facility] staff. He is also developed worsening edema of both lower extremities. Here the patient does seem confused. He is very vague in his answers. Denies having headache, chest pain, shortness of breath, abdominal pain at this time. No report of fever. Related Data Home Medications Medication Instructions Recorded Confirmed divalproex 500 mg tablet,extended 500 mg PO TID 08/14/21 05/02/22 release 24 hr (Depakote ER) enoxaparin 40 mg/0.4 mL 40 mg subcut DAILY 08/14/21 08/14/21 subcutaneous syringe (Lovenox) pantoprazole 40 mg tablet,delayed 40 mg PO DAILY 08/14/21 05/02/22 release polyethylene glycol 3350 17 gram 17 g PO DAILY 08/14/21 05/02/22 oral powder packet (Miralax) quetiapine 50 mg tablet (Seroquel) 50 mg PO QID 08/14/21 08/14/21 sennosides 8.6 mg tablet (senna) 17.2 mg PO DAILY 08/14/21 05/02/22 tamsulosin 0.4 mg capsule 0.4 mg PO DAILY 08/14/21 05/02/22 ascorbate calcium (vitamin C) 500 500 mg PO BID 10/07/21 mg tablet ferrous sulfate 325 mg (65 mg 325 mg PO BID 10/07/21 iron) tablet furosemide 40 mg tablet 40 mg PO DAILY 10/07/21 05/02/22 haloperidol 1 mg tablet 1 mg PO BID PRN 10/07/21 acetaminophen 325 mg tablet 325 mg PO Q6H PRN PRN 05/02/22 05/02/22 atorvastatin 40 mg tablet 40 mg PO QPM 05/02/22 05/02/22 bisacodyl 10 mg rectal suppository 10 mg AR DAILY PRN 05/02/22 05/02/22 (Dulcolax (bisacodyl)) magnesium oxide 400 mg PO BID 05/02/22 05/02/22 potassium chloride 20 mEq 20 meq PO DAILY 05/02/22 05/02/22 tablet,extended release risperidone 1 mg tablet 1 mg PO DAILY 05/02/22 05/02/22 tramadol 50 mg tablet 50 mg PO Q4H PRN PRN 05/02/22 05/02/22 Allergies Allergy/AdvReac Type Severity Reaction Status Date / Time No Known Allergies Allergy Unverified 05/02/22 04:26 General KENDRA: 3 Review of Systems Unobtainable due to mental status PFSH All Active Problems (Updated 05/02/22 @ 07:40 by Kendall Torres MD) AMS (altered mental status) (Acute) Leg edema (Acute) Medical History Bipolar disorder GERD (gastroesophageal reflux disease) Hypercholesterolemia Surgical History Amputated toe of right foot Social History Smoking/Tobacco Use Status: Former Tobacco Use Quit Date: 05/14/21 Smoking risk assessment performed?: Yes Alcohol Intake: former Drug use: Never Substance use type: does not use Do you feel safe at home: Yes Do you feel safe in your relationship?: Yes Exam Narrative Exam Narrative: Const: Obese male in NAD. HEENT: NC/AT. Normal facial exam. Eyes: Normal conjunctiva and sclera. Neck: Supple. Trachea midline. Lungs: Normal respiratory effort. Lungs are clear lateral and anterior. Cor: RRR without murmur/gallop. Good radial pulses. GI: Soft. NT. Slightly distended. Neuro: A+O x 1. Normal speech. Cranial nerves II - XII grossly intact. No gross motor or sensory deficit. Ext: No C/C. Marked bilateral lower extremity edema with both feet and legs wrapped. Amputated toe site clean dry and intact Skin: Warm and dry without rash.
--- NOTE | 2022-05-02 04:30 | DI.RAD_ITS ---
Exam(s) XR CHEST 2V PA LATERAL EXAM: XR CHEST 2V PA LATERAL CLINICAL HISTORY: cough TECHNIQUE: 2D digital imaging was performed. COMPARISON: No exams were available for comparison FINDINGS: HEART: Mildly enlarged. Aorta tortuous.. PULMONARY VASCULATURE: Normal. LUNGS: Suboptimally inflated but clear. PLEURAL SPACE: No pleural effusion or pneumothorax. BONE:No compression fractures. IMPRESSION: No acute abnormality. DATA REPOSITORY: RADIATION DOSE DELIVERED:
--- NOTE | 2022-05-02 04:30 | DI.CT_ITS ---
Exam(s) CT HEAD WO EXAM: CT HEAD WO CLINICAL HISTORY: AMS. TECHNIQUE: Imaging Protocol: Axial computed tomography images with coronal and sagittal reformatted images were created and reviewed COMPARISON: CT CT HEAD CERVICAL SPINE WO from 08/14/2021 FINDINGS: Exam is mildly limited by patient motion. Ventricles and Extra axial spaces: Normal in size and morphology for the patient's age. Hemorrhage: No acute hemorrhage. Cerebral parenchyma: Atrophy. White matter changes consistent with small vessel disease. Stable 7 m m hyperintense focus in the superior right frontal region. Midline shift: None. Brainstem/Cerebellum: Normal. Calvarium: No fracture. Visualized Paranasal sinuses/Mastoids: Mucous retention cysts both maxillary sinuses. Mild mucosal t hickening ethmoid and sphenoid sinuses. IMPRESSION: Atrophy and white matter changes of small vessel disease. Stable hyper intense focus superior right frontal lobe. No acute abnormality. RADIATION DOSE DELIVERED: 1,113.84mGy.cm Total DLP 1,113.84mGy.cm Total DLP DATA REPOSITORY: All CT scans at this facility are submitted to the National Radiology Data Registry (NRDR) Dose Index Registry (DIR) with the [employer] (A[employer]). RADIATION OPTIMIZATION: All CT scans at this facility use at least one of these dose optimization te chniques: automated exposure control; mA and/or kV adjustment per patient size (includes targeted exa ms where dose is matched to clinical indication); or iterative reconstruction.
--- NOTE | 2022-05-02 04:30 | RT.EKG_ITS ---
APPROVED REPORT Exam: Resting ECG Reason for Exam: weakness Patient Location: E HR:99 bpm ECG Measurements Heart Rate 99 AXIS DE [id number] P [id number] QRSd 84 QRS -3 QT 340 T 8 QTc 437 Conclusion Atrial flutter with predominant 3:1 AV block...A-rate 312, multiple Ps Low voltage, precordial leads...precordial leads <1.0mV NSR @ 99 not flutter. Normal R[place]ana Nonspecific ST-T changes No STEMI
[2022-05-02 05:09] LABS: Abs Immature Grans 0.02 10^3/uL (0.0-0.06); Absolute Basophil Count 0.01 10^3/uL (0.0-0.2); Absolute Eosinophil Count 0.14 10^3/uL (0.0-0.7); Absolute Lymphocyte Count 1.47 10^3/uL (1.2-3.4); Absolute Monocyte Count 0.85 10^3/uL (0.1-0.8); Absolute Neutrophil Count 4.72 10^3/uL (1.2-6.7); Basophils % 0.1; Eosinophils % 1.9; HCT 30.6 % (40.0-50.0); HGB 10.4 g/dL (13.5-17.5); Immature Grans % 0.3; Lymphocytes % 20.4; MCH 32.9 pg (27.0-33.0); MCV 97 fL (80-95); MPV 9.1 fL (8.0-11.0); Monocytes % 11.8; Neutrophils % 65.5; Platelet Count 192 10^3/uL (130-400); RBC 3.16 10^6/uL (4.36-5.78); RDW 11.5 % (11.8-14.1); RDW-SD 40.7 fL; WBC 7.21 10^3/uL (4.4-10.8)
[2022-05-02 05:10] LABS: Bilirubin Negative (Negative); Blood Negative (Negative); Clarity Clear (Clear); Glucose Negative (Negative); Ketones Negative (Negative); Leukocyte Esterase Negative (Negative); Nitrite Negative (Negative); Specific Gravity 1.015 (1.005-1.025); pH 8.5 (5-8)
[2022-05-02 05:24] LABS: ALT 9 U/L (16-63); AST 12 U/L (15-37); Albumin 2.6 g/dL (3.4-5.0); Alkaline Phosphatase 86 U/L (46-116); Anion Gap 7.7 mmol/L (3-11); BUN 4 mg/dL (7-18); Bilirubin, Total 0.5 mg/dL (0.2-1.0); CO2 27.3 mmol/L (21.0-32.0); CREATININE 0.6 mg/dL (0.70-1.30); Calcium 8.5 mg/dL (8.5-10.1); Chloride 103 mmol/L (98-107); Glucose 95 mg/dL (74-106); Magnesium 1.9 mg/dL (1.8-2.4); Potassium 3.9 mmol/L (3.5-5.1); Sodium 138 mmol/L (136-145); Total Protein 6.2 g/dL (6.4-8.2); Troponin I < 50 ng/L (<or=60)
--- NOTE | 2022-05-02 05:49 | DI.VRAD_ITS ---
Addendum created by Lisbeth Pitts MD on 05/02/2022 5:51:11 AM EDT: THIS REPORT CONTAINS FINDINGS THAT MAY BE CRITICAL TO PATIENT CARE. The findings were verbally communicated via telephone conference at 5:51 AM EDT on 05/02/2022 with SEGUNDO COOK. The findings were acknowledged and understood. Initial report created on 05/02/2022 5:49:05 AM EDT: PROCEDURE INFORMATION: Exam: CT Head Without Contrast Exam date and time: 05/02/2022 5:16 AM Age: 66 years old Clinical indication: Stroke-like symptoms TECHNIQUE: Imaging protocol: Computed tomography of the head without contrast. Other technique: STROKE PROTOCOL was implemented. COMPARISON: CT HEAD CERVICAL SPINE WO 08/14/2021 12:08 PM FINDINGS: Brain: Diffuse sulcal prominence is compatible with age-related involutional changes. There is no intracranial hemorrhage, mass effect, midline shift, or extra-axial collection. Suarez-white matter differentiation is preserved. There is no evidence of acute territorial infarct. 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 Mild patchy hypoattenuation in the supratentorial white matter is most compatible with underlying mild chronic microangiopathy in a patient of this age. Cerebral ventricles: Diffuse prominence of the ventricular system compatible with age-related involutional changes. The size and configuration of the ventricular system is stable. No hydrocephalus. Paranasal sinuses: Mild polypoid mucosal thickening in both maxillary sinuses. Mild mucosal thickening in the bilateral ethmoid air cells. Tiny air-fluid level in the right maxillary sinus. Mastoid air cells: The mastoid air cells are clear bilaterally. Bones/joints: The calvarium is osteopenic. No acute abnormality. Soft tissues: Extracranial soft tissues are unremarkable. IMPRESSION: 1. No acute intracranial abnormality. No intracranial hemorrhage or acute territorial infarct. 2. Stable chronic and incidental findings are discussed in the body of the report. ASSESSMENT: ASPECTS ([place] Stroke Program Early CT Score) is 10. Dictated and Authenticated by: Lisbeth Pitts MD. Ordering:SAI Argueta MD
--- NOTE | 2022-05-02 05:53 | DI.VRAD_ITS ---
PROCEDURE INFORMATION: Exam: XR Chest Exam date and time: 05/02/2022 5:30 AM Age: 66 years old Clinical indication: Other: Cough TECHNIQUE: Imaging protocol: XR of the chest. Views: 2 views. COMPARISON: CT CHEST/ABD/PEL W 08/14/2021 12:14 PM FINDINGS: Lungs: There are low lung volumes. The lungs are clear, without consolidation or pulmonary edema. Pulmonary vasculature is normal in caliber. Pleural spaces: Unremarkable. No pleural effusion or pneumothorax. Heart/Mediastinum: Apparent enlargement of the cardiac silhouette is felt to most likely be artifactual, accentuated by decreased inspiratory effort and the mediastinal lipomatosis seen on the comparison CT. The thoracic aorta is tortuous, with mural calcification. The stacie are not enlarged. Bones/joints: Degenerative changes. No acute osseous abnormality. IMPRESSION: No acute cardiopulmonary abnormality. Dictated and Authenticated by: Lisbeth Pitts MD. Ordering:SAI Argueta MD
[2022-05-02 07:50] LABS: BE (Venous) 3 mmol/L (-2-3); HCO3 (Venous) 27 mmol/L (23-28); O2 Sat (Venous) 86 %; TCO2 (Venous) 25 mmol/L (24-29); pCO2 (Venous) 40 mmHg (41-51); pH (Venous) 7.45 (7.31-7.41); pO2 (Venous) 51 mmHg
[2022-05-02 08:02] LABS: Ammonia 36 umol/L (11-32)
[2022-05-02 08:12] LABS: VALPROIC ACID 53.8 ug/mL
[2022-05-02 09:12] LABS: Lab Add On Test DONE
[2022-05-02 09:17] LABS: Source Nasal/Nares
[2022-05-02 10:01] LABS: Procalcitonin < 0.1 ng/mL
[2022-05-02 10:19] LABS: COVID-19 PCR Negative (Negative)
[2022-05-02] MEDS: Acetaminophen 325 MG TAB PO (17:19)
--- NOTE | 2022-05-02 18:48 | PGE_ITS ---
Date of Service Date of service: 05/02/22 Time of Service: 17:50 Subjective Subjective Interval history since last seen: Mr Bhakta is a 66 year old male with PMHx of bipolar d/o, EtOH abuse in the past, GERD, obesity with BMI of 30, who resides at [facility] who was brought to [facility] ED Objective Last Vital Signs Temp 37.1 C 05/02/22 15:17 Pulse 94 H 05/02/22 15:30 Resp 14 05/02/22 15:31 BP 131/91 H 05/02/22 15:30 Pulse Ox 94 05/02/22 15:17 Laboratory Results - last 24 hr 05/02/22 05/02/22 05/02/22 04:45 04:45 04:53 WBC 7.21 RBC 3.16 L Hgb 10.4 L Hct 30.6 L MCV 97 H MCH 32.9 MCHC 34.0 RDW 11.5 L Plt Count 192 MPV 9.1 Immature Gran % 0.3 Neutrophils % 65.5 Lymphocytes % 20.4 Monocytes % 11.8 Eosinophils % 1.9 Basophils % 0.1 Nucleated RBC % 0.0 Absolute Neutrophils 4.72 Absolute Lymphocytes 1.47 Absolute Monocytes 0.85 H Absolute Eosinophils 0.14 Absolute Basophils 0.01 VBG pH VBG pCO2 VBG pO2 VBG HCO3 VBG Total CO2 VBG O2 Saturation VBG Base Excess Sodium 138 Potassium 3.9 Chloride 103 Carbon Dioxide 27.3 Anion Gap 7.7 BUN 4 L Creatinine 0.6 L Estimated GFR/1.73 m2 >= 60.00 Glucose 95 Calcium 8.5 Magnesium 1.9 Total Bilirubin 0.5 AST 12 L ALT 9 L Alkaline Phosphatase 86 Ammonia Troponin I < 50 Total Protein 6.2 L Albumin 2.6 L Procalcitonin Urine Color Yellow Urine Clarity Clear Urine pH 8.5 H Ur Specific [place] 1.015 Urine Protein Negative Urine Ketones Negative Urine Blood Negative Urine Nitrite Negative Urine Bilirubin Negative Urine Urobilinogen 1.0 H Ur Leukocyte Esterase Negative Urine Glucose Negative Valproic Acid COVID-19 Source SARS-CoV-2 (PCR) Add-On Test Request 05/02/22 05/02/22 05/02/22 07:45 07:45 07:45 WBC RBC Hgb Hct MCV MCH MCHC RDW Plt Count MPV Immature Gran % Neutrophils % Lymphocytes % Monocytes % Eosinophils % Basophils % Nucleated RBC % Absolute Neutrophils Absolute Lymphocytes Absolute Monocytes Absolute Eosinophils Absolute Basophils VBG pH 7.45 H VBG pCO2 40 L VBG pO2 51 VBG HCO3 27 VBG Total CO2 25 VBG O2 Saturation 86 VBG Base Excess 3 Sodium Potassium Chloride Carbon Dioxide Anion Gap BUN Creatinine Estimated GFR/1.73 m2 Glucose Calcium Magnesium Total Bilirubin AST ALT Alkaline Phosphatase Ammonia 36 H Troponin I Total Protein Albumin Procalcitonin Urine Color Urine Clarity Urine pH Ur Specific [place] Urine Protein Urine Ketones Urine Blood Urine Nitrite Urine Bilirubin Urine Urobilinogen Ur Leukocyte Esterase Urine Glucose Valproic Acid 53.8 COVID-19 Source SARS-CoV-2 (PCR) Add-On Test Request 05/02/22 05/02/22 05/02/22 07:45 07:45 09:10 WBC RBC Hgb Hct MCV MCH MCHC RDW Plt Count MPV Immature Gran % Neutrophils % Lymphocytes % Monocytes % Eosinophils % Basophils % Nucleated RBC % Absolute Neutrophils Absolute Lymphocytes Absolute Monocytes Absolute Eosinophils Absolute Basophils VBG pH VBG pCO2 VBG pO2 VBG HCO3 VBG Total CO2 VBG O2 Saturation VBG Base Excess Sodium Potassium Chloride Carbon Dioxide Anion Gap BUN Creatinine Estimated GFR/1.73 m2 Glucose Calcium Magnesium Total Bilirubin AST ALT Alkaline Phosphatase Ammonia Troponin I Total Protein Albumin Procalcitonin < 0.1 Urine Color Urine Clarity Urine pH Ur Specific [place] Urine Protein Urine Ketones Urine Blood Urine Nitrite Urine Bilirubin Urine Urobilinogen Ur Leukocyte Esterase Urine Glucose Valproic Acid COVID-19 Source Nasal/Nares SARS-CoV-2 (PCR) Negative Add-On Test Request DONE
[2022-05-02] MEDS: Furosemide 40 MG/4 ML VIAL IVP (18:49)
--- NOTE | 2022-05-02 18:54 | HPE_ITS ---
Date of service: 05/02/22 Time of Service: 17:50 Assessment and Plan Assessment and plan (1) Toxic metabolic encephalopathy: Status: Acute Assessment and plan: In setting of hyperammonemia, h/o EtOH abuse. Baseline mental status is A&Ox2. On my exam the patient was cooperative, but had asterexis. Schedule lactulose. Trend ammonia and monitor mental status. (2) Hyperammonemia: Status: Acute Assessment and plan: The patient has a h/o EtOH abuse - I wonder if he has cirrhosis. Additionally, he is on depakote, and hyperammonemia could be its side effects. Trial lactulose. Continue depakote for now, but consider changing it to a different agent. (3) Acute CHF: Status: Acute Assessment and plan: We are not aware of this patient's cardiac history. Obtain echo. Monitor on tele. Repeat troponin. Check TSH. (4) Leg edema: Status: Acute Assessment and plan: As above. Additionally, obtain venous dopplers BLEs. (5) Left foot pain: Status: Acute Assessment and plan: Check XR. ?trauma during one of the falls. (6) Ambulatory dysfunction: Status: Acute Assessment and plan: C/s PT (7) DVT prophylaxis: Status: Acute Assessment and plan: SC heparin (8) Discharge planning issues: Status: Acute Assessment and plan: DNR/DNI per [facility] form. Has a temporary guardianship. History of Present Illness History of Present Illness Chief Complaint: Altered mental status Narrative: Mr Bhakta is a 66 year old male with PMHx of bipolar d/o, EtOH abuse in the past, GERD, obesity with BMI of 30, who resides at [facility] who was brought to [facility] ED early this morning for altered mental status. Per Dr Torres, this has been going on for at least a week and started with a fall on 04/26/22, when he was started on tramadol for pain. Since then the patient has been unsteady on his feet and more and more confused. On 04/29-04/30, he was noted to have more leg swelling and was started on lasix. Apparently, he was hallucinating, weaker, and unable to stand. In the ED, he was restless and trying to get out of bed, which was not safe because he was unsteady on his feet. His ER workup revealed a negative CT head and CXR, a negative UA, and no evidence of a bacterial process. He had tested negative for COVID-19. He was found to be mildly hyperammonemic. Hospitalist admission was requested. On interaction with me, the patient is A&Ox2, cooperative, answers all questions, reports pain in L ankle/heel and nowhere else. He told me that he normally gets cherri boots and that the ones he is wearing were put on on (4 days ago). He is not able to tell me details of his medical history. He denies pain/discomfort anywhere else. He reports a little nausea. Review of Systems Narrative: The patient reports L heel pain. He specifically denies dizziness, chest pain, shortness of breath, cough, endorses mild nausea. All systems reviewed & are unremarkable except as noted in HPI and below PFSH All Active Problems (Updated 05/02/22 @ 19:22 by Anastasiya Franz MD) Discharge planning issues (Acute) DVT prophylaxis (Acute) Ambulatory dysfunction (Acute) Left foot pain (Acute) Acute CHF (Acute) Hyperammonemia (Acute) Toxic metabolic encephalopathy (Acute) AMS (altered mental status) (Acute) Leg edema (Acute) Medical History (Updated 05/02/22 @ 19:22 by Anastasiya Franz MD) Alcoholism in remission Bipolar disorder BPH (benign prostatic hyperplasia) Chronic osteomyelitis R third toe s/p amputation COVID-19 ?when GERD (gastroesophageal reflux disease) Hypercholesterolemia Incoordination Muscle weakness Seizure disorder per [facility] chart Surgical History Amputated toe of right foot Social History Smoking/Tobacco Use Status: Former Tobacco Use Quit Date: 05/14/21 Smoking risk assessment performed?: Yes Alcohol Intake: former Drug use: Never Substance use type: does not use Do you feel safe at home: Yes Do you feel safe in your relationship?: Yes Meds Allergies and Home Medications Allergies Allergy/AdvReac Type Severity Reaction Status Date / Time No Known Allergies Allergy Unverified 05/02/22 04:26 Home Medications Medication Instructions Recorded Confirmed Type divalproex 500 mg tablet,extended 500 mg PO TID 08/14/21 05/02/22 History release 24 hr (Depakote ER) enoxaparin 40 mg/0.4 mL 40 mg subcut DAILY 08/14/21 08/14/21 History subcutaneous syringe (Lovenox) pantoprazole 40 mg tablet,delayed 40 mg PO DAILY 08/14/21 05/02/22 History release polyethylene glycol 3350 17 gram 17 g PO DAILY 08/14/21 05/02/22 History oral powder packet (Miralax) quetiapine 50 mg tablet (Seroquel) 50 mg PO QID 08/14/21 08/14/21 History sennosides 8.6 mg tablet (senna) 17.2 mg PO DAILY 08/14/21 05/02/22 History tamsulosin 0.4 mg capsule 0.4 mg PO DAILY 08/14/21 05/02/22 History ascorbate calcium (vitamin C) 500 500 mg PO BID 10/07/21 History mg tablet ferrous sulfate 325 mg (65 mg 325 mg PO BID 10/07/21 History iron) tablet furosemide 40 mg tablet 40 mg PO BID 10/07/21 05/02/22 History haloperidol 1 mg tablet 1 mg PO BID PRN 10/07/21 History acetaminophen 325 mg tablet 325 mg PO Q6H PRN PRN 05/02/22 05/02/22 History atorvastatin 40 mg tablet 40 mg PO QPM 05/02/22 05/02/22 History bisacodyl 10 mg rectal suppository 10 mg DC DAILY PRN 05/02/22 05/02/22 History (Dulcolax (bisacodyl)) magnesium oxide 400 mg PO BID 05/02/22 05/02/22 History potassium chloride 20 mEq 20 meq PO DAILY 05/02/22 05/02/22 History tablet,extended release risperidone 1 mg tablet 1 mg PO DAILY 05/02/22 05/02/22 History sodium chloride 1 gram tablet 1 g PO HS 05/02/22 05/02/22 History tramadol 50 mg tablet 50 mg PO Q4H PRN PRN 05/02/22 05/02/22 History Allergy/Medication Comments:: the MAR that came with the patient from [facility] is incomplete - therefore, I cannot verify the doses of some of these medications/if the patient is still on them. Exam Narrative Exam Narrative: General: Obese male who looks much older than his stated age, A&Ox2, sitting calmly in a chair, on RA, no dyspnea/tachypnea/cyanosis Neurological: A&Ox2, +mild asterexis, no focal deficits Psychiatric: cooperative, calm, somewhat flat affect Skin: BLEs are dressed in unna boots; otherwise, no obvious bruises/rashes HEENT: Atraumatic, normocephalic (?healed incisions seen at the top of the head), EOMI, MMM, clear oropharynx, no submandibular or cervical lymphadenopathy, no goiter or JVD Cardiovascular: RRR, no m/r/g Lungs: Rales B lung martin Gastrointestinal: soft, obese, nontender Genitourinary: deferred Extremities: BLEs in unna boots. Results Imaging Additional studies: CXR: No acute abnormality.? CT head w/ contrast: Atrophy and white matter changes of small vessel disease.? Stable hyper intense focus superior right frontal lobe.? No acute abnormality. EKG; ST, HR 99, no acute ischemia Labs Result diagrams: 05/02/22 04:45 05/02/22 04:45 Labs: Laboratory Results - last 24 hr 05/02/22 05/02/22 05/02/22 04:45 04:45 04:53 WBC 7.21 RBC 3.16 L Hgb 10.4 L Hct 30.6 L MCV 97 H MCH 32.9 MCHC 34.0 RDW 11.5 L Plt Count 192 MPV 9.1 Immature Gran % 0.3 Neutrophils % 65.5 Lymphocytes % 20.4 Monocytes % 11.8 Eosinophils % 1.9 Basophils % 0.1 Nucleated RBC % 0.0 Absolute Neutrophils 4.72 Absolute Lymphocytes 1.47 Absolute Monocytes 0.85 H Absolute Eosinophils 0.14 Absolute Basophils 0.01 VBG pH VBG pCO2 VBG pO2 VBG HCO3 VBG Total CO2 VBG O2 Saturation VBG Base Excess Sodium 138 Potassium 3.9 Chloride 103 Carbon Dioxide 27.3 Anion Gap 7.7 BUN 4 L Creatinine 0.6 L Estimated GFR/1.73 m2 >= 60.00 Glucose 95 Calcium 8.5 Magnesium 1.9 Total Bilirubin 0.5 AST 12 L ALT 9 L Alkaline Phosphatase 86 Ammonia Troponin I < 50 Total Protein 6.2 L Albumin 2.6 L Procalcitonin Urine Color Yellow Urine Clarity Clear Urine pH 8.5 H Ur Specific [place] 1.015 Urine Protein Negative Urine Ketones Negative Urine Blood Negative Urine Nitrite Negative Urine Bilirubin Negative Urine Urobilinogen 1.0 H Ur Leukocyte Esterase Negative Urine Glucose Negative Valproic Acid COVID-19 Source SARS-CoV-2 (PCR) Add-On Test Request 05/02/22 05/02/22 05/02/22 07:45 07:45 07:45 WBC RBC Hgb Hct MCV MCH MCHC RDW Plt Count MPV Immature Gran % Neutrophils % Lymphocytes % Monocytes % Eosinophils % Basophils % Nucleated RBC % Absolute Neutrophils Absolute Lymphocytes Absolute Monocytes Absolute Eosinophils Absolute Basophils VBG pH 7.45 H VBG pCO2 40 L VBG pO2 51 VBG HCO3 27 VBG Total CO2 25 VBG O2 Saturation 86 VBG Base Excess 3 Sodium Potassium Chloride Carbon Dioxide Anion Gap BUN Creatinine Estimated GFR/1.73 m2 Glucose Calcium Magnesium Total Bilirubin AST ALT Alkaline Phosphatase Ammonia 36 H Troponin I Total Protein Albumin Procalcitonin Urine Color Urine Clarity Urine pH Ur Specific [place] Urine Protein Urine Ketones Urine Blood Urine Nitrite Urine Bilirubin Urine Urobilinogen Ur Leukocyte Esterase Urine Glucose Valproic Acid 53.8 COVID-19 Source SARS-CoV-2 (PCR) Add-On Test Request 05/02/22 05/02/22 05/02/22 07:45 07:45 09:10 WBC RBC Hgb Hct MCV MCH MCHC RDW Plt Count MPV Immature Gran % Neutrophils % Lymphocytes % Monocytes % Eosinophils % Basophils % Nucleated RBC % Absolute Neutrophils Absolute Lymphocytes Absolute Monocytes Absolute Eosinophils Absolute Basophils VBG pH VBG pCO2 VBG pO2 VBG HCO3 VBG Total CO2 VBG O2 Saturation VBG Base Excess Sodium Potassium Chloride Carbon Dioxide Anion Gap BUN Creatinine Estimated GFR/1.73 m2 Glucose Calcium Magnesium Total Bilirubin AST ALT Alkaline Phosphatase Ammonia Troponin I Total Protein Albumin Procalcitonin < 0.1 Urine Color Urine Clarity Urine pH Ur Specific [place] Urine Protein Urine Ketones Urine Blood Urine Nitrite Urine Bilirubin Urine Urobilinogen Ur Leukocyte Esterase Urine Glucose Valproic Acid COVID-19 Source Nasal/Nares SARS-CoV-2 (PCR) Negative Add-On Test Request DONE Last Vital Signs Temp 37.1 C 05/02/22 15:17 Pulse 94 H 05/02/22 15:30 Resp 14 05/02/22 15:31 BP 131/91 H 05/02/22 15:30 Pulse Ox 94 05/02/22 15:17
[2022-05-02 19:33] LABS: Lab Add On Test DONE
[2022-05-02 19:54] LABS: NT-proBNP 1475 pg/mL (<300)
[2022-05-02 20:18] LABS: Troponin I < 50 ng/L (<or=60)
[2022-05-02 20:24] LABS: TSH (W/Ref FT4) 4.04 uIU/mL (0.36-3.74)
[2022-05-02 20:40] LABS: FREE T4 1.12 ng/dL (0.76-1.46)
--- NOTE | 2022-05-02 20:54 | DI.VRAD_ITS ---
PROCEDURE INFORMATION: Exam: XR Left Foot Exam date and time: 05/02/2022 8:11 PM Age: 66 years old Clinical indication: Left; Patient HX: L heel pain TECHNIQUE: Imaging protocol: XR Left foot. Views: 3 or more views. COMPARISON: No relevant prior studies available. FINDINGS: Bones/joints: Decreased osseous mineralization consistent with osteopenia. No discrete or displaced fracture. No joint dislocation. Calcaneal pitch is decreased, correlate with physical exam to suggest pes planus. Plantar spur is present. Soft tissues: Diffuse nonfocal soft tissue edema. IMPRESSION: No acute osseous finding. Dictated and Authenticated by: Jonathan Fatima MD. Ordering:SARBJIT Langford MD
[2022-05-02] MEDS: Heparin 5,000 UNITS/ML VIAL 5000 UNITS SC (21:47)
[2022-05-02] MEDS: Lidocaine 2% Jelly 11 ML SYR UR (21:54)
[2022-05-03] VITALS (14 sets, daily range): BP systolic 92–134; BP diastolic 53–82; PULSE 95–173; RESP 14–19; TEMP 36.7–37.5; O2SAT 92–97
--- NOTE | 2022-05-03 | DI.US_ITS ---
Exam(s) US EXTREMITY VENOUS BI EXAM: US EXTREMITY VENOUS BI CLINICAL HISTORY: concern for DVT. TECHNIQUE: Bilateral lower extremity venous ultrasound performed using grayscale, color-flow, and sp ectral Doppler analysis. COMPARISON: No exams were available for comparison FINDINGS: The exam was somewhat limited by patient immobility. The bilateral common femoral, femoral and popli teal veins demonstrate normal compressibility, augmentation, and color Doppler. The posterior tibial veins are patent. The saphenous veins are patent bilaterally. No Cortez's cyst. Edema is noted in t he subcutaneous fat bilaterally. IMPRESSION: Right: Negative for DVT Left: Negative for DVT DATA REPOSITORY:
[2022-05-03 07:01] LABS: Abs Immature Grans 0.02 10^3/uL (0.0-0.06); Absolute Basophil Count 0.02 10^3/uL (0.0-0.2); Absolute Eosinophil Count 0.17 10^3/uL (0.0-0.7); Absolute Lymphocyte Count 1.13 10^3/uL (1.2-3.4); Absolute Monocyte Count 0.94 10^3/uL (0.1-0.8); Absolute Neutrophil Count 4.47 10^3/uL (1.2-6.7); Basophils % 0.3; Eosinophils % 2.5; HCT 30.8 % (40.0-50.0); HGB 10.4 g/dL (13.5-17.5); Immature Grans % 0.3; Lymphocytes % 16.7; MCH 32.9 pg (27.0-33.0); MCHC 33.8 % (32.0-36.0); MCV 98 fL (80-95); MPV 8.8 fL (8.0-11.0); Monocytes % 13.9; Neutrophils % 66.3; Platelet Count 174 10^3/uL (130-400); RBC 3.16 10^6/uL (4.36-5.78); RDW 11.5 % (11.8-14.1); RDW-SD 40.7 fL; WBC 6.75 10^3/uL (4.4-10.8)
[2022-05-03 07:10] LABS: Ammonia 46 umol/L (11-32)
[2022-05-03 07:46] LABS: ALT 10 U/L (16-63); AST 12 U/L (15-37); Albumin 2.5 g/dL (3.4-5.0); Alkaline Phosphatase 79 U/L (46-116); Anion Gap 7.1 mmol/L (3-11); BUN 4 mg/dL (7-18); Bilirubin, Direct 0.1 mg/dL (0.0-0.2); Bilirubin, Total 0.5 mg/dL (0.2-1.0); CO2 26.9 mmol/L (21.0-32.0); CREATININE 0.7 mg/dL (0.70-1.30); Calcium 8.4 mg/dL (8.5-10.1); Chloride 104 mmol/L (98-107); Glucose 123 mg/dL (74-106); Potassium 3.4 mmol/L (3.5-5.1); Sodium 138 mmol/L (136-145); Total Protein 6.1 g/dL (6.4-8.2)
[2022-05-03] MEDS: Magnesium Oxide 400 MG TAB PO ×2 (08:00→20:50)
--- NOTE | 2022-05-03 08:00 | DI.US_ITS ---
APPROVED REPORT EXAM: Comprehensive 2D, Doppler, and color-flow Echocardiogram Patient Location: In-Patient Room/Bed: [address] [employer] Engineer Supervisor: Ayana Troncoso RDCS (AE) Indications: CHF Other Information Study Quality: Fair. Technically limited study due to inability to position patient, body habitus. Conclusion Normal left ventricular wall thickness and chamber size. Estimated ejection fraction is 55%. Wall m otion is normal The right atrium and right ventricle are not well visualized Left atrium is normal in size No structural or hemodynamically significant valvular abnormalities were seen within the limits of th e study Wall motion Left Ventricle The left ventricle is normal size. The overall left ventricular systolic function appears normal. The re is normal left ventricular wall thickness. There is normal LV segmental wall motion. There is no v entricular septal defect visualized. LVEF is 55%. Right Ventricle Right ventricle is not well visualized. Right ventricular systolic function could not be assessed. Atria The left atrium size is normal. Right atrium is not well visualized. The interatrial septum is intact with no evidence for an atrial septal defect. Aortic Valve The aortic valve is normal in structure. Aortic valve is trileaflet. There is no aortic valvular sten osis. No aortic regurgitation is present. Mitral Valve The mitral valve is normal in structure. No evidence of mitral valve stenosis. Trace mitral regurgita tion. Tricuspid Valve The tricuspid valve is normal in structure. There is no tricuspid valve stenosis. Trace tricuspid reg urgitation. Pulmonic Valve The pulmonary valve is normal in structure. There is no pulmonic valvular stenosis. There is no pulmo patt valvular regurgitation. Great Vessels The aortic root is normal in size. Ascending aorta is not well visualized. Aortic arch is not well vi sualized. Due to poor image quality, the IVC could not be assessed. Pericardium Technically difficult subcostal imaging. 2D Dimensions IVSD d PLAX 0.97 cm M: 0.6-1.2 LV Vol A2C d MOD 140.7 mL LVPW d PLAX 0.98 cm M: 0.6 - 1.2 LV Vol A4C d MOD 129.8 mL LVID d PLAX 4.72 cm M: 4.2 - 5.8 LV EF A4C MOD 53.1 % LVDs 3.50 cm M: 2.5 - 4.0 LV EF A2C MOD 50.4 % Ao Root d 3.17 cm M: 3.1 - 3.7 LV EF Biplane MOD 52.9 % LV EF Teichholz 49.8 % SV 73.77 mL LVEF (Cope's) 52.88 % M: 52 - 72 SV Index 37.92 mL/m2 LV Volume 105.61 mL M: 62 - 150 LV Volume Index 54.43 mL/m2 M: 34 - 74 LV Vol Biplane MOD 139.5 mL FS 25.20 % M-Mode TAPSE 1.68 cm (M/F) >1.7 LV Diastology MV E' medial 0.094 (>0.07 m/s) E/A Ratio 0.8 LV E/e MED 6.40 (<14) MV E Vmax 0.60 (0.4-1.3 m/s) MV E' lateral 0.071 (>0.1 m/s) MV A Vmax 0.75 (0.4-1.3 m/s) LV E/e LAT 8.40 (<14) MV E/A Ratio 0.75 MV E/E' medial 6.42 MV E/E' lateral 8.44 Aortic Valve LVOT Area 3.21 cm2 AoV Area Vmax 2.23 cm2 LVOT Vmax 0.84 m/s AoV Area/ BSA (Vmax) 1.15 cm2/m2 LVOT Mean Aditya. 0.56 m/s RAYMOND Mean Aditya. 2.00 cm2 LVOT Peak Grad 2.8 mmHg RAYMOND Mean Aditya. Index 1.03 cm2/m2 LVOT Mean Grad 1.5 mmHg LVOT VTI 0.156 m LVOT Diam s 2.00 cm AoV Vmax 1.21 m/s Velocity Ratio 0.69 AoV Mean Aditya. 0.90 m/s AoV Peak Grad 5.8 mmHg LVOT SV 50.20 mL AoV Mean Grad 3.6 mmHg AoV VTI 0.239 m AoV Area VTI 2.10 cm2 AoV Area/ BSA (VTI) 1.08 cm/m2 Mitral Valve MV DT 235 (160-240 msec) MV PHT 68 msec MV Area PHT 3.23 cm2 MV VTI 0.259 m MV Area VTI 1.94 (4.0-6.0 cm2) Pulmonary Valve PV Vmax 0.92 (0.5-1.5 m/s) RVOT Peak Gr. 1.99 mmHg PV Peak Grad 3.4 mmHg RVOT Mean Gr. 1.25 mmHg PV Mean Grad 2.3 mmHg RVOT VTI 0.148 m PV VTI 0.184 m RVOT Vmax 0.71 m/s Tricuspid Valve TR Peak Grad 25.8 mmHg TR Vmax 2.54 m/s
[2022-05-03] MEDS: Senna TAB 2 TAB PO (08:01)
[2022-05-03] MEDS: Furosemide 40 MG TAB PO (08:01)
[2022-05-03] MEDS: Pantoprazole 40 MG TABCR PO (08:01)
[2022-05-03] MEDS: Potassium Chloride 20 MEQ TABCR PO (08:02)
[2022-05-03] MEDS: Lactulose 20 GM/30 ML CUP PO ×2 (08:02→20:50)
[2022-05-03] MEDS: Polyethylene Glycol 3350 17 GM PACKET PO (08:02)
[2022-05-03] MEDS: risperiDONE 1 MG TAB PO (08:02)
[2022-05-03] MEDS: Tamsulosin 0.4 MG CAPCR PO (08:02)
[2022-05-03] MEDS: Divalproex 250 MG TABEC PO ×2 (10:12→22:19)
[2022-05-03] MEDS: Furosemide 40 MG/4 ML VIAL IVP ×2 (10:12→15:41)
[2022-05-03] MEDS: Normal Saline Flush 10 ML SYR IVP (10:12)
--- NOTE | 2022-05-03 10:36 | INITIAL_ITS ---
- If Service Date Differs Date of service: 05/03/22 Time of Service: 10:36 Care Management Initial Assess REASON FOR HOSPITALIZATION:: Encephalopathy PAST MEDICAL HISTORY/PAST SURGICAL HISTORY:: All Active Problems. Discharge planning issues (Acute). DVT prophylaxis (Acute). Ambulatory dysfunction (Acute). Left foot pain (Acute). Acute CHF (Acute). Hyperammonemia (Acute). Toxic metabolic encephalopathy (Acute). AMS (altered mental status) (Acute). Leg edema (Acute). Medical History. Alcoholism in remission. Bipolar disorder. BPH (benign prostatic hyperplasia). Chronic osteomyelitis. R third toe s/p amputation. COVID-19. ?when. GERD (gastroesophageal reflux disease). Hypercholesterolemia. Incoordination. Muscle weakness. Seizure disorder. per retirement chart. Surgical History. Amputated toe of right foot PREVIOUS FUNCTIONAL STATUS/SOCIAL/FAMILY SUPPORTS:: Dagoberto currently resides at [facility]. He has a Susannah miles, who is also his guardian, appointed by the [facility]. He requires support for his ADL's, which he receives at the facility where he is residing. CURRENT FUNCTIONAL STATUS:: Dagoberto is being closely monitored on med/surge. He had an echo today which reported that his LVEF is 55%. Per report, his encephalopathy is in the setting of hyperammonemia, and he is being treated with lactulose. Per report, he is near his baseline mental status, and will likely be discharged back to [facility] tomorrow, if he continues to improve. CM discussed this with [facility], who stated that he can return tomorrow at 12, via facility w/c van. CM will continue to follow. ADVANCE DIRECTIVES:: [facility] on file. Guardianship paperwork also on file, as his Susannah miles. Has patient been provided with info about the portal/API?: Yes Did the patient sign up for the portal?: No CODE STATUS:: DNR/DNI INSURANCE COVERAGE / FINANCIAL ISSUES:: RAMIN/ SRAVAN CURRENT HOME/COMMUNITY SERVICES/EQUIPMENT:: Dagoberto currently lives at a SNF, where his care needs and being met. PRIMARY CARE PHYSICIAN:: Nieves Sherman POTENTIAL DISCHARGE NEEDS:: Evaluations for further needs, follow up appointments. PATIENT/FAMILY EDUCATION NEEDS:: Review discharge instructions and limitations, discussion of self care needs including ask me three. ANTICIPATED BARRIERS TO DISCHARGE:: None. TRANSPORTATION:: Via facility w/c van PLAN:: Dagoberto will return to [facility] once he is medically cleared. He will transport via facility w/c van, coordinated by CM. He will follow up with his PCP and discharge plan of care. CM will continue to follow.
[2022-05-03] MEDS: Divalproex 500 MG TABEC PO (15:41)
--- NOTE | 2022-05-03 16:10 | PGE_ITS ---
Date of Service Date of service: 05/03/22 Time of Service: 16:10 Assessment and Plan Assessment and plan (1) Toxic metabolic encephalopathy: Status: Resolved Assessment and plan: In setting of hyperammonemia, h/o EtOH abuse. Now at baseline mental status - A&Ox2 continue daily lactulose. (2) Hyperammonemia: Status: Acute Assessment and plan: The patient has a h/o EtOH abuse -consider cirrhosis. Additionally, he is on depakote, and hyperammonemia could be its side effects. Trial lactulose. Continue depakote for now, but consider changing it to a different agent. (3) Acute CHF: Status: Acute Assessment and plan: We are not aware of this patient's cardiac history. echo: Conclusion Normal left ventricular wall thickness and chamber size.? Estimated ejection fraction is 55%.? Wall motion is normal The right atrium and right ventricle are not well visualized Left atrium is normal in size No structural or hemodynamically significant valvular abnormalities were seen within the limits of the study No dysrhythmia on tele. Repeat troponin has been negative. TSH 4.04. (4) Leg edema: Status: Acute Assessment and plan: As above. Additionally, negative venous dopplers BLEs. (5) Left foot pain: Status: Acute Assessment and plan: Check XR. ?trauma during one of the falls. (6) Ambulatory dysfunction: Status: Acute Assessment and plan: C/s PT (7) DVT prophylaxis: Status: Acute Assessment and plan: SC heparin (8) Discharge planning issues: Status: Acute Assessment and plan: DNR/DNI per [facility] form. Has a temporary guardianship. anticipate discharge back to [facility] tomorrow if stable. discussed with DR Jauregui. Subjective Subjective Patient reports: no new complaints, feels better, tolerating liquids well, tolerating a regular diet and afebrile; denies shortness of breath Interval history since last seen: appears at his baseline with no c/o pain or issues. Exam Const General: cooperative, comfortable, no acute distress, frail appearing and ill appearing (older than stated age) chronically Nutritional Appearance: average body habitus Orientation: alert, awake, oriented to person and oriented to place [facility] Head: normal to inspection, normocephalic and atraumatic Mouth: oral mucosae normal Chest Chest: normal inspection of the chest Resp Effort & Inspection: normal respiratory effort Auscultation: clear to auscultation bilaterally Cardio Rate: regular rate Rhythm: regular rhythm GI Inspection: normal to inspection Palpation: soft Auscultation: normal bowel sounds Skin General skin exam: no rashes or lesions noted Neuro General: patient alert, patient awake and no focal motor deficits Extrem General: normal to inspection, full ROM, amputation noted Toe: right (3rd, scab intact, no sign of infection) and edema Laterality: bilateral Psych Mental Status: mental status grossly normal Speech and Movement: speech and movement normal Mood: congruent mood Affect: normal affect Attitude: cooperative Objective Last Vital Signs Temp 37.3 C 05/03/22 15:52 Pulse 102 H 05/03/22 15:52 Resp 14 05/03/22 15:52 BP 98/64 L 05/03/22 15:52 Pulse Ox 95 05/03/22 15:52 Laboratory Results - last 24 hr 05/02/22 05/02/22 05/02/22 07:45 19:28 19:58 WBC RBC Hgb Hct MCV MCH MCHC RDW Plt Count MPV Immature Gran % Neutrophils % Lymphocytes % Monocytes % Eosinophils % Basophils % Nucleated RBC % Absolute Neutrophils Absolute Lymphocytes Absolute Monocytes Absolute Eosinophils Absolute Basophils Sodium Potassium Chloride Carbon Dioxide Anion Gap BUN Creatinine Estimated GFR/1.73 m2 Glucose Calcium Magnesium Total Bilirubin Conjugated Bilirubin AST ALT Alkaline Phosphatase Ammonia Troponin I < 50 C-Reactive Protein NT-Pro-B Natriuret Pep 1475 H Total Protein Albumin TSH Free T4 Add-On Test Request DONE 05/02/22 05/03/22 05/03/22 19:58 06:45 06:45 WBC 6.75 RBC 3.16 L Hgb 10.4 L Hct 30.8 L MCV 98 H MCH 32.9 MCHC 33.8 RDW 11.5 L Plt Count 174 MPV 8.8 Immature Gran % 0.3 Neutrophils % 66.3 Lymphocytes % 16.7 Monocytes % 13.9 Eosinophils % 2.5 Basophils % 0.3 Nucleated RBC % 0.0 Absolute Neutrophils 4.47 Absolute Lymphocytes 1.13 L Absolute Monocytes 0.94 H Absolute Eosinophils 0.17 Absolute Basophils 0.02 Sodium 138 Potassium 3.4 L Chloride 104 Carbon Dioxide 26.9 Anion Gap 7.1 BUN 4 L Creatinine 0.7 Estimated GFR/1.73 m2 >= 60.00 Glucose 123 H Calcium 8.4 L Magnesium 2.0 Total Bilirubin 0.5 Conjugated Bilirubin 0.1 AST 12 L ALT 10 L Alkaline Phosphatase 79 Ammonia Troponin I C-Reactive Protein 2.80 H NT-Pro-B Natriuret Pep Total Protein 6.1 L Albumin 2.5 L TSH 4.04 H Free T4 1.12 Add-On Test Request 05/03/22 06:45 WBC RBC Hgb Hct MCV MCH MCHC RDW Plt Count MPV Immature Gran % Neutrophils % Lymphocytes % Monocytes % Eosinophils % Basophils % Nucleated RBC % Absolute Neutrophils Absolute Lymphocytes Absolute Monocytes Absolute Eosinophils Absolute Basophils Sodium Potassium Chloride Carbon Dioxide Anion Gap BUN Creatinine Estimated GFR/1.73 m2 Glucose Calcium Magnesium Total Bilirubin Conjugated Bilirubin AST ALT Alkaline Phosphatase Ammonia 46 H Troponin I C-Reactive Protein NT-Pro-B Natriuret Pep Total Protein Albumin TSH Free T4 Add-On Test Request
--- NOTE | 2022-05-03 16:40 | PT.INNT ---
PT Notes Visit Reasons: Encephalopathy Date: 05/03/2022 I attempted to evaluate the patient twice today, and he was having procedures elsewhere. I will reattempt to see the patient tomorrow a.m.
--- NOTE | 2022-05-03 18:00 | RT.EKG_ITS ---
APPROVED REPORT Exam: Resting ECG Reason for Exam: [facility] Patient Location: I HR:143 bpm ECG Measurements Heart Rate 143 AXIS CO [id number] P [id number] QRSd 77 QRS -8 QT 308 T 24 QTc 475 Conclusion Atrial fibrillation...V-rate 102-179, irreg A-activity Abnormal R-wave progression, early transition...QRS area>0 in V2 Baseline wander in lead(s) V2,V6
[2022-05-03] MEDS: Metoprolol 5 MG/5 ML VIAL IVP (18:41)
[2022-05-03 20:05] LABS: Magnesium 1.9 mg/dL (1.8-2.4); Potassium 3.5 mmol/L (3.5-5.1)
[2022-05-03 20:13] LABS: Troponin I < 50 ng/L (<or=60)
[2022-05-03] MEDS: Atorvastatin 40 MG TAB PO (20:49)
[2022-05-03] MEDS: Heparin 5,000 UNITS/ML VIAL 5000 UNITS SC (20:50)
[2022-05-04 02:01] VITALS: BP 110/60; PULSE 94; RESP 18; TEMP 37.3; O2SAT 96
[2022-05-04 04:06] VITALS: BP 104/70; PULSE 101; RESP 18; TEMP 36.7; O2SAT 95
[2022-05-04 07:00] VITALS: BP 118/72; PULSE 88; RESP 19; TEMP 36.9; O2SAT 99
[2022-05-04 07:18] LABS: Troponin I < 50 ng/L (<or=60)
--- NOTE | 2022-05-04 07:25 | NUR.NOTE ---
Nursing Note: Patient has a wound consult ordered . This nurse spoke to the patient, he is unable to provide the data on who is seeing him for wounds. Patient had Unna boots on when he arrived to the floor. Legs were assessed. Right le + pitting edema. no open areas on lower leg. stitches are intact on the right 3 rd toe, which was amputated according to the patient 2 weeks ago. Left le + pitting edema, no open areas on lower leg and foot. Advised charge Nurse Natali, due to the presentation, that a wound consult does not appear to be necessary.
[2022-05-04] MEDS: Heparin 5,000 UNITS/ML VIAL 5000 UNITS SC (09:01)
[2022-05-04] MEDS: Lactulose 20 GM/30 ML CUP PO (09:01)
[2022-05-04] MEDS: Polyethylene Glycol 3350 17 GM PACKET PO (09:01)
[2022-05-04] MEDS: Furosemide 40 MG TAB PO (09:02)
[2022-05-04] MEDS: Tamsulosin 0.4 MG CAPCR PO (09:02)
[2022-05-04] MEDS: Metoprolol 12.5 MG TAB PO (09:02)
[2022-05-04] MEDS: Pantoprazole 40 MG TABCR PO (09:02)
[2022-05-04] MEDS: Magnesium Oxide 400 MG TAB PO (09:02)
[2022-05-04] MEDS: Potassium Chloride 20 MEQ TABCR PO (09:02)
[2022-05-04] MEDS: Senna TAB 2 TAB PO (09:02)
[2022-05-04] MEDS: Divalproex 250 MG TABEC PO (09:03)
[2022-05-04 09:22] VITALS: PULSE 117
[2022-05-04] MEDS: risperiDONE 1 MG TAB PO (09:26)
[2022-05-04 11:00] VITALS: BP 114/70; PULSE 86; RESP 20; TEMP 36.6; O2SAT 100
--- NOTE | 2022-05-04 11:18 | PDOC.CMDIS ---
- If Service Date Differs Date of service: 05/04/22 Time of Service: 11:18 LACE Index Scoring Tool - Questions: Length of Stay (in days): 2 Acuity (Admit via E.D.?): Yes Comorbidities: Cerebrovascular Disease, Congestive Heart Failure E.D. Visits: 2 - Answers: Total Score: 10 Risk of Readmission: High Risk Care Management Discharge Reason for Hospitalization: Encephalopathy Discharge Plan: Dagoberto will return to [facility], where he currently resides. He will transport via facility w/c van, coordinated by CM. He will follow up with facility providers and his discharge plan of care. He is happy to be returning. Patient/Family Education Needs: Review discharge instructions and limitations, discussion of self care needs including ask me three. Services Needed at Discharge: [facility] Facility ([facility]), Transportation (w/c van)
--- NOTE | 2022-05-04 11:19 | IN_ITS ---
PT Notes Visit Reasons: Encephalopathy Inpatient Physical Therapy Evaluation Date: 05/04/2022 Referring Doctor: Deonna Franz MD PT Orders: PT CONSULT: Encephalopathy Precautions: Fall risk Patient Profile/Admitting Diagnosis: 66-year-old male who was admitted recently with encephalopathy and confusion Social History/Home Situation: Was transferred from a longterm facility. Current Functional Limitations: Independent with bed mobility activities and ambulating with a walker with contact-guard Equipment Owned/DME: Walker Subjective: No complaints of pain offered. Cannot recall why he was admitted to the hospital etc., but is conversive and answers questions appropriately. Objective: General Observation: Alert and pleasant Mental Status: Oriented x3 Pain: None mentioned ROM: His active cervical spine rotation is limited to approximately 30 degrees and sidebending 15 degrees without pain on movement. His active shoulder movements are approximately 100 degrees and active assistively rotation is 60 degrees externally and 70 degrees internally. He has hypomobility with form motions particularly supination and wrist flexion and extension. His active assistive right hip flexion is 90 degrees, rotation to 30 degrees abduction 30 degrees without pain on movement. His left hip motion is 30 degrees of external rotation and 0 degrees of internal rotation. Bilateral knee motion is approximately -15 to 90 degrees. He has hypomobility with the tibiotalar, subtalar midtarsal joints as well as his digits. He is edematous lower extremities with venous stasis Strength: Strength is generally rated 3/5 throughout with a interpretive naturalist at 4/5 Neuro: Biceps/brachioradialis and triceps +2 and symmetrical, KJ's and AJ's are 0. Negative Babinski bilaterally, fingertips to nose is accurate without ataxia and rapid repetitive arm movements are intact. He has mild rigidity throughout particular lower extremities but this may be due to his edema. Pedal pulses were not palpable Bed Mobility/Transfers: Independent with assuming the supine, sitting and standing positions but with some effort. Gait: Ambulated approximately 10 feet with short strides and contact guarding. He complained of plantar left foot discomfort with weightbearing. Balance: Static Sitting: Stable Dynamic Sitting: Stable Static Standing: Stable Dynamic Standing: Required contact guarding Special Tests: Mobility Limitations Standardized Measure [facility] AM-PAC 6 clicks Basic Mobility Inpatient Short Form: Raw Score: 15 standardized Score: 2.93 CMS Score: 57.7% Informed Consent/Education: Patient instructed in purpose of PT consult and plan of care. Assessment: Patient is a 66year old male referred to physical therapy services with the diagnosis of encephalopathy with transient confusion. Patient presents with clinical signs and symptoms consistent with diagnosis, although his confusion appears to have cleed. As demonstrated by the following impairment level findings: Effort with all bed mobility activities and ambulation with contact guarding.. Impairments are contributing to the following functional limitations: Patient is assessed as a Moderate 46206 complexity based on the following: History: See comorbidities and social history Examination: See above for functional limitations and impairments Presentation: Evolving Decision Making: Moderate complexity Goals: Goals X1 week Independent bed mobility activities with minimal assistance and ambulating with a wheeled walker for greater than 200 feet with contact guarding Plan of Care/Treatment Plan: 1-2x/day, 7 days/week x 1 week. Plan of care has been reviewed with the ASSISTANT EDITOR providing the service under Physical Therapy direction. Initiate Physical Therapy intervention for strengthening, bed mobility, transfers, gait, stairs, balance training, use of assistive device. DISCHARGE RECOMMENDATIONS: [x] SNF for continued rehabilitation [] TREATMENT CODE/TIME: 9716 2/30 minutes
--- NOTE | 2022-05-04 12:50 | W.PM.DS.N ---
DS: Diagnosis Discharge Diagnosis (1) Toxic metabolic encephalopathy: Status: Resolved (2) Hyperammonemia: Status: Acute (3) Acute CHF: Status: Acute (4) Leg edema: Status: Acute (5) Left foot pain: Status: Acute (6) Ambulatory dysfunction: Status: Acute (7) DVT prophylaxis: Status: Acute (8) Discharge planning issues: Status: Acute Discharge Plan Disposition Patient Disposition: SNF (LEVEL 1) [facility] Condition: Stable Discharge Details Reason For Visit: Encephalopathy Admit Date/Time: 05/02/22 08:50 Admit Provider: Anastasiya Franz Attending Provider: Anastasiya Franz Primary Care Provider: Nieves Sherman Hospital Course Hospital Course: This is a 66 year old male with history of bipolar disorder, alcohol abuse, GERD, obesity with BMI of 30, who resides at [facility] who was brought to [facility] ED for altered mental status. Per ED provider, this has been going on for at least a week and started with a fall on 04/26/22, when he was started on tramadol for pain. Since then the patient has been unsteady on his feet and more and more confused. On 04/29-04/30, he was noted to have more leg swelling and was started on lasix. Apparently, he was hallucinating, weaker, and unable to stand. In the ED, he was restless and trying to get out of bed, which was not safe because he was unsteady on his feet. His ED workup revealed a negative CT head and CXR, a negative UA, and no evidence of a bacterial process. He had tested negative for COVID-19.? He was found to be mildly hyperammonemic. Hospitalist admission was requested. He was given lactulose for elevated ammonia level of 46, he now appears at his baseline, eating and drinking well. No complaints. Overnight he rested comfortably with no behavioral issues or altered mental status, vitals stable. He is safe for discharge back to [facility] and rehab. discussed with Dr Jauregui. Home Meds and New Rx's Prescriptions: No Action furosemide 40 mg tablet 40 mg PO BID haloperidol 1 mg tablet 1 mg PO BID PRN ferrous sulfate 325 mg (65 mg iron) tablet 325 mg PO BID sennosides [senna] 8.6 mg Tablet 17.2 mg PO DAILY polyethylene glycol 3350 [Miralax] 17 gram Powder In Packet 17 g PO DAILY tamsulosin 0.4 mg Capsule 0.4 mg PO DAILY pantoprazole 40 mg Tablet,Delayed Release (Dr/Ec) 40 mg PO DAILY enoxaparin [Lovenox] 40 mg/0.4 mL Syringe 40 mg subcut DAILY quetiapine [Seroquel] 50 mg Tablet 50 mg PO QID atorvastatin 40 mg Tablet 40 mg PO QPM acetaminophen 325 mg Tablet 325 mg PO Q6H PRN PRN tramadol 50 mg Tablet 50 mg PO Q4H PRN PRN bisacodyl [Dulcolax (bisacodyl)] 10 mg Suppository 10 mg NM DAILY PRN risperidone 1 mg Tablet 1 mg PO DAILY potassium chloride 20 mEq Tablet Extended Release 20 meq PO DAILY magnesium oxide 400 mg magnesium Tablet 400 mg PO BID sodium chloride 1 gram Tablet 1 g PO HS divalproex 250 mg Tablet,Delayed Release (Dr/Ec) 250 mg PO BID divalproex 500 mg Tablet,Delayed Release (Dr/Ec) 500 mg PO DAILY@1400 Discharge Instructions Instructions: Altered Mental Status (ED) Additional Instructions: resume ususal medication as previously redirected. Discharge with indwelling urinary catheter. Stand Alone Forms: Nursing Discharge Form Referrals: Nieves Sherman [Primary Care Provider] - Activity:: Activity as Tolerated Equipment/Supplies:: No Equipment Needed Diet:: As Tolerated Discharge Orders Discharge Orders: Discharge Order (Routine); Ordered 05/04/22 Ordered By: Chasity Sanz Discharge Data Discharge Date/Time-TO BE ENTERED AT DEPARTURE: 05/04/22 12:08 DS: Summary Summary Time spent discussing smoking cessation with patient: more than 10 minutes Time Spent with Patient providing and/or coordinating discharge services: Less than 30 minutes Status at Discharge Functional status at discharge: uses cane/walker Overall status at discharge: patient is progressing back to baseline Mental Status: mental status grossly normal (baseline confusion) Speech and Movement: slowed movement Mood: congruent mood Affect: normal affect Exam Psych Mental Status: mental status grossly normal (baseline confusion) Speech and Movement: slowed movement Mood: congruent mood Affect: normal affect DS: Data Vitals/I&O Vitals and I&O: Vital Signs Temperature 36.6 C 05/04/22 11:00 Temperature Source Tympanic 05/04/22 11:00 Pulse 86 05/04/22 11:00 Pulse Rhythm Regular 05/04/22 11:07 Pulse 99 H 05/02/22 15:31 Respiratory Rate 20 05/04/22 11:00 Respiratory Effort 05/04/22 11:07 Respiratory Depth Normal 05/04/22 11:07 Respiratory Pattern Normal 05/04/22 11:07 Blood Pressure 114/70 05/04/22 11:00 Blood Pressure Mean 100 05/02/22 15:30 Blood Pressure Position Supine 05/02/22 04:24 Pulse Oximetry 100 05/04/22 11:00 Oxygen Delivery Method Room Air 05/04/22 11:00 Oxygen Flow Rate 0 05/04/22 11:00 Pain Level 0 05/03/22 18:21 Comment 05/03/22 18:46 Intake & Output 05/03/22 05/04/22 05/04/22 23:59 11:59 23:59 Intake Total 240 / 1180 140 / 140 Output Total 3600 / 4650 425 / 925 500 / 925 Balance -3360 / -3470 -285 / -785 -500 / -785 Weight 83.2 kg Intake: Oral 240 / 1180 140 / 140 Output: Urine 3600 / 4650 425 / 425 Stool 500 / 500 Other: Urine Color Yellow Pale Urine Appearance Clear Clear Comment to return to [facility] with tinoco in situ Stool Size Copious Stool Characteristics Liquid Data Completed and Pending Labs on day of discharge: Labs from last 24 hours 05/04/22 05/03/22 05/03/22 06:23 19:23 19:23 Potassium 3.5 Magnesium 1.9 Troponin I < 50 < 50 PFSH All Active Problems (Updated 05/03/22 @ 16:15 by Lucy Salter NP) Discharge planning issues (Acute) DVT prophylaxis (Acute) Ambulatory dysfunction (Acute) Left foot pain (Acute) Acute CHF (Acute) Hyperammonemia (Acute) AMS (altered mental status) (Acute) Leg edema (Acute) Medical History (Updated 05/03/22 @ 16:15 by Lucy Salter NP) Alcoholism in remission Bipolar disorder BPH (benign prostatic hyperplasia) Chronic osteomyelitis R third toe s/p amputation COVID-19 ?when GERD (gastroesophageal reflux disease) Hypercholesterolemia Incoordination Muscle weakness Seizure disorder per custodial chart Surgical History Amputated toe of right foot Social History Smoking/Tobacco Use Status: Former Tobacco Use Quit Date: 05/14/21 Smoking risk assessment performed?: Yes Alcohol Intake: former Drug use: Never Substance use type: does not use Do you feel safe at home: Yes Do you feel safe in your relationship?: Yes
== END 2022-05-04 12:08 | disposition skilled nursing facility (03) ==
LOC: ER 10:16 → MS 20:23
PROVIDERS: Emergency Medicine; Nurse Practitioner Acute Care; Admitting Provider Internal Medicine; Emergency Provider Emergency Medicine; PCP Internal Medicine; Visit Provider Internal Medicine
DX: G92.8 Other toxic encephalopathy (principal); R05.9 Cough, unspecified; I48.92 Unspecified atrial flutter; I48.91 Unspecified atrial fibrillation; I44.39 Other atrioventricular block; I50.9 Heart failure, unspecified; E72.20 Disorder of urea cycle metabolism, unspecified; M79.672 Pain in left foot; W19.XXXA Unspecified fall, initial encounter; R29.6 Repeated falls; Z66 Do not resuscitate; F31.9 Bipolar disorder, unspecified; K21.9 Gastro-esophageal reflux disease without esophagitis; Z79.899 Other long term (current) drug therapy; F10.21 Alcohol dependence, in remission; N40.0 Benign prostatic hyperplasia without lower urinary tract symptoms; Z89.421 Acquired absence of other right toe(s); G40.909 Epilepsy, unspecified, not intractable, without status epilepticus; E78.00 Pure hypercholesterolemia, unspecified; Z86.16 Personal history of COVID-19; M62.81 Muscle weakness (generalized); R60.0 Localized edema; Z87.891 Personal history of nicotine dependence; E66.9 Obesity, unspecified; Z68.30 Body mass index [BMI] 30.0-30.9, adult
CPT/HCPCS: 36415; 80048; 80053; 80076; 82805; 84145; 87081; 87635; 93005; 93306; 96372; 96374; 96375; 96376; 97162; 99285; 99407; 70450; 71046; 73630; 80164; 81003; 82140; 83735; 83880; 84132; 84439; 84443; 84484; 85025; 86140; 93010; 93970; 99217; 99220; 99226; G0378; J1644; J1940; J3490

== ENCOUNTER → 2022-05-18 01:31 | Outpatient (CLI) | payer MEDICARE, MEDICAID, SELFPAY ==
--- NOTE | 2022-05-18 10:22 | DI.CT_ITS ---
Exam(s) CT HEAD WO EXAM: CT HEAD WO CLINICAL HISTORY: RECURRENCE OF ENCEPHALOPATHY. TECHNIQUE: Imaging Protocol: Axial computed tomography images with coronal and sagittal reformatted images were created and reviewed COMPARISON: CT CT HEAD WO from 05/02/2022 FINDINGS: Ventricles and Extra axial spaces: Normal in size and morphology for the patient's age. Hemorrhage: None. Cerebral parenchyma: There is stable cerebral atrophy present. There are areas of decreased attenuat ion in the white matter which are stable and likely reflect small vessel ischemic disease. The hyper dense focus in the right frontal lobe is unchanged. Midline shift: None. Brainstem/Cerebellum: Normal. Calvarium: Normal. Visualized Paranasal sinuses/Mastoids: There is mild mucosal thickening in the paranasal sinuses. Th ere is a fluid level in the left maxillary sinus. The mastoid air cells are clear. Soft Tissues: Unremarkable. IMPRESSION: 1. No acute intracranial process. 2. Stable appearance of the brain since 05/02/2022. 3. Paranasal sinus disease. RADIATION DOSE DELIVERED: 936.8mGy.cm Total DLP DATA REPOSITORY: All CT scans at this facility are submitted to the National Radiology Data Registry (NRDR) Dose Index Registry (DIR) with the [employer] ([employer]). RADIATION OPTIMIZATION: All CT scans at this facility use at least one of these dose optimization te chniques: automated exposure control; mA and/or kV adjustment per patient size (includes targeted exa ms where dose is matched to clinical indication); or iterative reconstruction.
== END ==
PROVIDERS: PCP Internal Medicine; Visit Provider Family Medicine
DX: G93.40 Encephalopathy, unspecified (principal); J32.9 Chronic sinusitis, unspecified
CPT/HCPCS: 70450

== ENCOUNTER 2022-05-31 00:11 | Outpatient (REF) | payer SELFPAY ==
[2022-05-31 00:32] LABS: HCT 32.6 % (40.0-50.0); HGB 10.9 g/dL (13.5-17.5); MCH 32.4 pg (27.0-33.0); MCHC 33.4 % (32.0-36.0); MCV 97 fL (80-95); MPV 9.8 fL (8.0-11.0); Platelet Count 155 10^3/uL (130-400); RBC 3.36 10^6/uL (4.36-5.78); RDW-SD 43.2 fL; WBC 6.79 10^3/uL (4.4-10.8)
[2022-05-31 00:49] LABS: Anion Gap 11.3 mmol/L (3-11); BUN 7 mg/dL (7-18); CO2 27.7 mmol/L (21.0-32.0); CREATININE 0.7 mg/dL (0.70-1.30); Calcium 8.3 mg/dL (8.5-10.1); Chloride 105 mmol/L (98-107); Glucose 109 mg/dL (74-106); Potassium 3.5 mmol/L (3.5-5.1); Sodium 144 mmol/L (136-145)
[2022-05-31 01:22] LABS: C Diff PCR Negative (Negative)
== END 2022-05-31 00:12 | disposition home or self-care (01) ==
LOC: LBN 00:11
PROVIDERS: PCP Internal Medicine; Visit Provider Nurse Practitioner Family
DX: K92.1 Melena (principal); K92.2 Gastrointestinal hemorrhage, unspecified; D64.9 Anemia, unspecified; E72.20 Disorder of urea cycle metabolism, unspecified; I50.9 Heart failure, unspecified
CPT/HCPCS: 80048; 85027; 87493; 82272